=== PATIENT | male | born 1950 | race Caucasian/White ===

== ENCOUNTER 2018-01-14 15:42 | Inpatient (IN) | payer MEDICARE ==
[~2018-01-14] VITALS: Ht 165.1 cm; Wt 96.6 kg
[2018-01-14] MEDS ORDERED: VALS80TA31 PO (16:20)
[2018-01-14] MEDS ORDERED: ACAM333T8 PO (16:20)
[2018-01-14] MEDS ORDERED: BUDE180A INH (16:20)
[2018-01-14] MEDS ORDERED: AZEL6DRO5 EACHEYE (16:20)
[2018-01-14] MEDS ORDERED: TEST75GE TOP (16:20)
[2018-01-14] MEDS ORDERED: AMLO10TA6 PO (16:20)
[2018-01-14] MEDS ORDERED: OMEP20CA10 PO (16:20)
[2018-01-14] MEDS ORDERED: TAMS0.4C34 PO (16:20)
[2018-01-14] MEDS ORDERED: CYCL5TAB PO (16:20)
[2018-01-14] MEDS ORDERED: FURO40TA5 PO (16:20)
[2018-01-14] MEDS ORDERED: GABA-534 PO (16:20)
[2018-01-14] MEDS ORDERED: TRAZ-213 PO (16:20)
[2018-01-14] MEDS ORDERED: ALBU18HF2 IH (16:20)
[2018-01-14] MEDS ORDERED: TADA5TAB2 PO (16:20)
[2018-01-14] MEDS ORDERED: LORA1TAB PO (16:20)
[2018-01-14] MEDS ORDERED: HYDR-3026 PO (16:20)
[2018-01-14] MEDS ORDERED: ACYC400T PO (16:20)
[2018-01-14] MEDS ORDERED: MAGNESIUM HYDROXIDE 30 ML UDC PO PRN (16:30)
[2018-01-14] MEDS ORDERED: MAG HYDROX/AL HYDROX/SIMETH 30 ML UDC PO PRN (16:30)
[2018-01-14] MEDS ORDERED: ACETAMINOPHEN 325 MG TABLET PO PRN (16:30)
[2018-01-14 18:04] VITALS: BP 148/82
--- NOTE | 2018-01-14 18:22 | NUR ---
Admitted a 67 years old male on 5150 for DTS. Per hold pt. present's suicidal with plan to walk into traffic to kill himself. Pt. came from [facility] and arrived in the unit via ambulance and transported via a gurney. Upon face to face assessment, pt. denies suicidal and homicidal and claimed he is depressed. V/S taken, skin assessment done and pictures taken, contraband done and refused to sign the admission papers. Dr. Lam notified about the admission and seen pt. and Dr. Suggs made aware and came to the unit. Will continue to monitor for safety.
[2018-01-14] MEDS ORDERED: CIALIS PO SCH (18:30)
[2018-01-14] MEDS ORDERED: ALBUTEROL FS 2.5 MG/0.5 ML VIAL.NEB NEB PRN (19:30)
--- NOTE | 2018-01-14 19:30 | NUR ---
GPS RN NOTE, RECEIVED PATIENT AWAKE AND IN BED, NO S/S OR COMPLAINTS OF PAIN AT THIS TIME. PATIENT DISPLAYING NO S/S OF APPARENT DISTRESS AT THIS TIME. PATIENT BREATHING IS UNLABORED WITH EQUAL RISE AND FALL OF THE CHEST. PATIENT ALERT AND ORIENTED X 3 WITH A SPO2 95%. PATIENT IS MED COMPLIANT, DISORGANIZED, DEPRESSED, ISOLATIVE, COOPERATIVE, NEEDS REORIENTATION. PATIENT DENIES SUICIDE IDEATIONS AND HOMICIDAL IDEATIONS AT THIS TIME. PATIENT ASSISTED WITH TURNING AND REPOSITIONING Q2HR AND PRN FOR COMFORT AND CIRCULATION. PATIENT HAS NO NEEDS AT THIS TIME. PATIENT EDUCATED ON THE USE OF THE CALL MANZO. PATIENT BED SIDE RAILS UP X2 FOR SAFETY, BED IS LOCKED AND LOW WILL CONTINUE TO MONITOR AND MAINTAIN AND MAINTAIN SAFETY.
[2018-01-14] MEDS: ESCITALOPRAM OXALATE (10 MG) 10 MG TABLET PO SCH (19:56)
[2018-01-14 20:31] VITALS: BP 148/82
[2018-01-14] MEDS: BENZTROPINE MESYLATE (1 MG) 1 MG TABLET PO SCH (21:35)
[2018-01-14] MEDS: risperiDONE 0.25 MG TABLET PO SCH (21:35)
[2018-01-15] MEDS: TEMAZEPAM 7.5 MG CAPSULE PO PRN ×2 (00:23→21:25)
--- NOTE | 2018-01-15 00:23 | NUR ---
GPS RN NOTE, PATIENT HAS A COMPLAINT OF NOT BEING ABLE TO SLEEP AND IS REQUESTING RESTORIL AT THIS TIME. PATIENT VITAL SIGNS ARE STABLE. GAVE RESTORIL 7.5 MG PO HS ORDERED. WILL REASSESS FOR INSOMNIA AND I WILL CONTINUE TO MONITOR THIS PATIENT.
[2018-01-15 07:28] LABS: ALBUMIN 3.3 g/dL (3.4-5.0); BILIRUBIN,TOTAL 0.5 mg/dL (0.2-1.0); CALCIUM, SERUM 8.8 mg/dL (8.5-10.1); POTASSIUM 3.9 mmol/L (3.5-5.1); TOTAL PROTEIN, SERUM 7.2 g/dL (6.4-8.2)
[2018-01-15 08:00] VITALS: BP 143/78
[2018-01-15] MEDS: TAMSULOSIN 0.4 MG CAP.SR.24H PO SCH ×2 (08:41→17:08)
[2018-01-15] MEDS: PANTOPRAZOLE 40 MG TABLET.DR PO SCH (08:41)
[2018-01-15] MEDS: AMLODIPINE BESYLATE 10 MG TABLET PO SCH (08:42)
[2018-01-15] MEDS: VALSARTAN 80 MG TABLET PO SCH (08:42)
[2018-01-15] MEDS: FUROSEMIDE 40 MG TABLET PO SCH (08:43)
[2018-01-15] MEDS: ESCITALOPRAM OXALATE (10 MG) 10 MG TABLET PO SCH (08:43)
[2018-01-15] MEDS: GABAPENTIN 300 MG CAPSULE PO SCH ×3 (08:43→17:08)
[2018-01-15] MEDS: busPIRone 5 MG TABLET PO SCH ×3 (08:43→17:08)
[2018-01-15] MEDS ORDERED: ACAMPROSATE CALCIUM PO SCH (09:00)
[2018-01-15] MEDS ORDERED: PULMICORT FLEXHALER INH SCH (09:00)
[2018-01-15] MEDS ORDERED: AZELASTINE EYE DROPS EACHEYE SCH (09:00)
--- NOTE | 2018-01-15 09:16 | NUR ---
WOUND CARE CONSULT: PT PRESENTS WITH LEFT ARM RAISED RED AREA AND LEFT LOWER LEG ABRASION, PRESENT ON ADMISSION. DEFER TO MD FOR LEFT ARM. RECOMMENDATIONS MADE FOR WOUND CARE OF LEFT LEG ABRASION. DISCUSSED WITH NURSING STAFF. PT IS AMBULATORY AND CONTINENT. WILL SEE PRN. IN AGREEMENT WITH PLAN OF CARE. CURRENT JOSEFINA SCORE IS 22. Addendum: 01/15/18 at 0918 by KALEIGH EGAN WNDNU Amended: Links added.
--- NOTE | 2018-01-15 10:45 | NUR ---
DEA contacted Pia Quigley [phone] Bottom Brusher for Homeless Services at [facility] Department of Behavioral Wellness to discuss placement for pt. DEA unable to reach and left voicemail for callback.
[2018-01-15] MEDS: BUDESONIDE RESPULE INH 0.25 MG/2 ML AMPUL.NEB NEB SCH ×2 (10:50→20:23)
[2018-01-15] MEDS: ACYCLOVIR 200 MG CAPSULE PO SCH ×2 (10:58→17:08)
--- NOTE | 2018-01-15 11:27 | NUR ---
INITIAL DISCHARGE PLAN: Pt wants to de discharged to [facility] for Substance Abuse treatment. Address: [address] [place] [address] . Pt is collaborating with Pia Quigley [phone] Blast Furnace Checker for Homeless Services at [facility] Department of Behavioral Wellness who is assisting pt with placement. DEA has contacted Pia to help form a safe and proper discharge for pt in collaboration with .
[2018-01-15] MEDS: CLOTRIMAZOLE/BETAMETASONE DIPROPIONATE 15 GM TUBE TP SCH ×2 (12:03→17:02)
[2018-01-15] MEDS: BACITRACIN/POLYMYXIN B 15 GM TUBE TP SCH (12:03)
[2018-01-15 15:56] VITALS: BP 135/68
--- NOTE | 2018-01-15 19:30 | NUR ---
GPS NOTE R/T PAGED CONCERNING THE PT'S NEB TX.
[2018-01-15 20:01] VITALS: BP 125/72
[2018-01-15] MEDS: BENZTROPINE MESYLATE (1 MG) 1 MG TABLET PO SCH (21:05)
[2018-01-15] MEDS: risperiDONE 0.25 MG TABLET PO SCH (21:05)
--- NOTE | 2018-01-15 21:25 | NUR ---
GPS NOTE. C/O " IS THERE ANYTHING YOU COULD GIVE ME TO HELP ME FALL ASLEEP?" TEMAZEPAM 7.5 MG PO GIVEN ORDERED. WILL CONTINUE TO MONITOR FOR SAFETY.
[2018-01-16] MEDS: LORAZEPAM 0.5 MG TABLET PO PRN (03:35)
--- NOTE | 2018-01-16 03:35 | NUR ---
GPS NOTE C/O " CAN YOU PLEASE GIVE ME SOMETHING TO HELP ME WITH MY ANXIETY?" ATIVAN 0.5 GIVEN PO ORDER. WILL CONTINUE TO MONITOR FOR SAFETY.
[2018-01-16] MEDS: BUDESONIDE RESPULE INH 0.25 MG/2 ML AMPUL.NEB NEB SCH ×2 (07:34→20:21)
[2018-01-16 08:00] VITALS: BP 122/69
[2018-01-16] MEDS: PANTOPRAZOLE 40 MG TABLET.DR PO SCH (09:51)
[2018-01-16] MEDS: TAMSULOSIN 0.4 MG CAP.SR.24H PO SCH ×2 (09:51→17:02)
[2018-01-16] MEDS: AMLODIPINE BESYLATE 10 MG TABLET PO SCH (09:52)
[2018-01-16] MEDS: ACYCLOVIR 200 MG CAPSULE PO SCH ×2 (09:52→17:02)
[2018-01-16] MEDS: CYCLOBENZAPRINE 10 MG TABLET PO PRN (09:52)
[2018-01-16] MEDS: GABAPENTIN 300 MG CAPSULE PO SCH ×3 (09:53→17:01)
[2018-01-16] MEDS: FUROSEMIDE 40 MG TABLET PO SCH (09:53)
[2018-01-16] MEDS: busPIRone 5 MG TABLET PO SCH ×3 (09:53→17:02)
[2018-01-16] MEDS: BACITRACIN/POLYMYXIN B 15 GM TUBE TP SCH (09:53)
[2018-01-16] MEDS: CLOTRIMAZOLE/BETAMETASONE DIPROPIONATE 15 GM TUBE TP SCH ×2 (09:53→17:04)
[2018-01-16] MEDS: ESCITALOPRAM OXALATE (10 MG) 10 MG TABLET PO SCH (10:54)
--- NOTE | 2018-01-16 11:30 | NUR ---
MRSA SMEAR OF RT. NARE TO LAB PER PROTOCOL.
[2018-01-16] MEDS: VALSARTAN 80 MG TABLET PO SCH (11:55)
--- NOTE | 2018-01-16 11:55 | NUR ---
ALINA HELD BP 113/67.INFO GIVEN TO PTDariel
[2018-01-16 16:00] VITALS: BP 120/76
[2018-01-16 20:00] VITALS: BP 125/72
[2018-01-16] MEDS: BENZTROPINE MESYLATE (1 MG) 1 MG TABLET PO SCH (21:28)
[2018-01-16] MEDS: risperiDONE 0.25 MG TABLET PO SCH (21:29)
[2018-01-16] MEDS: TEMAZEPAM 7.5 MG CAPSULE PO PRN (21:29)
--- NOTE | 2018-01-17 00:44 | NUR ---
Pt has been withdrawn with flat affect but pleasant on approach & compliant with meds.
[2018-01-17] MEDS: LORAZEPAM 0.5 MG TABLET PO PRN ×2 (02:28→15:15)
[2018-01-17 08:00] VITALS: BP 131/69
[2018-01-17] MEDS: BUDESONIDE RESPULE INH 0.25 MG/2 ML AMPUL.NEB NEB SCH ×2 (08:03→19:16)
[2018-01-17] MEDS: TAMSULOSIN 0.4 MG CAP.SR.24H PO SCH ×2 (08:42→16:05)
[2018-01-17] MEDS: busPIRone 5 MG TABLET PO SCH ×3 (08:42→16:05)
[2018-01-17] MEDS: ACYCLOVIR 200 MG CAPSULE PO SCH ×2 (08:42→16:05)
[2018-01-17] MEDS: AMLODIPINE BESYLATE 10 MG TABLET PO SCH (08:43)
[2018-01-17] MEDS: VALSARTAN 80 MG TABLET PO SCH (08:43)
[2018-01-17] MEDS: PANTOPRAZOLE 40 MG TABLET.DR PO SCH (08:43)
[2018-01-17] MEDS: ESCITALOPRAM OXALATE (10 MG) 10 MG TABLET PO SCH (08:43)
[2018-01-17] MEDS: FUROSEMIDE 40 MG TABLET PO SCH (08:43)
[2018-01-17] MEDS: GABAPENTIN 300 MG CAPSULE PO SCH ×3 (08:44→16:05)
[2018-01-17] MEDS: CLOTRIMAZOLE/BETAMETASONE DIPROPIONATE 15 GM TUBE TP SCH ×2 (09:01→16:08)
[2018-01-17] MEDS: BACITRACIN/POLYMYXIN B 15 GM TUBE TP SCH (09:01)
[2018-01-17 16:08] VITALS: BP 111/68
[2018-01-17 19:58] VITALS: BP 128/65
[2018-01-17] MEDS: risperiDONE 0.25 MG TABLET PO SCH (21:00)
[2018-01-17] MEDS: BENZTROPINE MESYLATE (1 MG) 1 MG TABLET PO SCH (21:00)
[2018-01-17] MEDS: TEMAZEPAM 7.5 MG CAPSULE PO PRN (21:41)
[2018-01-18] MEDS: LORAZEPAM 0.5 MG TABLET PO PRN ×3 (01:43→18:54)
--- NOTE | 2018-01-18 01:43 | NUR ---
GPS-RN PATIENT IS ANXIOUS AND RESTLESS AND REQUESTED FOR ATIVAN. ADMINISTERED ATIVAN 0.5MG PO ORDERED. WILL CONTINUE TO MONITOR.
[2018-01-18 08:00] VITALS: BP 128/72
[2018-01-18] MEDS: BUDESONIDE RESPULE INH 0.25 MG/2 ML AMPUL.NEB NEB SCH ×3 (08:37→19:31)
[2018-01-18] MEDS: PANTOPRAZOLE 40 MG TABLET.DR PO SCH (09:12)
[2018-01-18] MEDS: AMLODIPINE BESYLATE 10 MG TABLET PO SCH (09:12)
[2018-01-18] MEDS: ESCITALOPRAM OXALATE (10 MG) 10 MG TABLET PO SCH (09:12)
[2018-01-18] MEDS: GABAPENTIN 300 MG CAPSULE PO SCH ×3 (09:12→17:34)
[2018-01-18] MEDS: ACYCLOVIR 200 MG CAPSULE PO SCH ×2 (09:12→17:34)
[2018-01-18] MEDS: busPIRone 5 MG TABLET PO SCH ×3 (09:12→17:34)
[2018-01-18] MEDS: TAMSULOSIN 0.4 MG CAP.SR.24H PO SCH ×2 (09:13→17:34)
[2018-01-18] MEDS: VALSARTAN 80 MG TABLET PO SCH (09:13)
[2018-01-18] MEDS: FUROSEMIDE 40 MG TABLET PO SCH (09:35)
[2018-01-18] MEDS: CLOTRIMAZOLE/BETAMETASONE DIPROPIONATE 15 GM TUBE TP SCH ×2 (09:46→17:35)
[2018-01-18] MEDS: BACITRACIN/POLYMYXIN B 15 GM TUBE TP SCH (09:46)
--- NOTE | 2018-01-18 11:12 | NUR ---
RN NOTES ADMINISTERED ATIVAN 0.5 MG PO PRN FOR ANXIETY PRESCRIBED, PER PATIENT REQUEST, V/S TAKEN BP -128/72, P-78, CONTINUED MONITORING.
[2018-01-18 16:00] VITALS: BP 108/66
--- NOTE | 2018-01-18 18:54 | NUR ---
RN NOTES ADMINISTERED ATIVAN 0.5 MG PO PRN FOR ANXIETY, PER PATIENT REQUEST, V/S TAKEN BP- 120/70, P-102, CONTINUED MONITORING.
[2018-01-18 19:36] VITALS: BP 106/62
[2018-01-18] MEDS: risperiDONE 0.25 MG TABLET PO SCH (21:28)
[2018-01-18] MEDS: BENZTROPINE MESYLATE (1 MG) 1 MG TABLET PO SCH (21:29)
[2018-01-18] MEDS: TEMAZEPAM 7.5 MG CAPSULE PO PRN (21:30)
[2018-01-19] MEDS: LORAZEPAM 0.5 MG TABLET PO PRN ×2 (04:18→12:18)
[2018-01-19] MEDS: BUDESONIDE RESPULE INH 0.25 MG/2 ML AMPUL.NEB NEB SCH ×2 (07:09→19:30)
[2018-01-19 08:00] VITALS: BP 126/72
[2018-01-19] MEDS: AMLODIPINE BESYLATE 10 MG TABLET PO SCH (08:20)
[2018-01-19] MEDS: FUROSEMIDE 40 MG TABLET PO SCH (08:20)
[2018-01-19] MEDS: ESCITALOPRAM OXALATE (10 MG) 10 MG TABLET PO SCH (08:21)
[2018-01-19] MEDS: VALSARTAN 80 MG TABLET PO SCH (08:21)
[2018-01-19] MEDS: PANTOPRAZOLE 40 MG TABLET.DR PO SCH (08:21)
[2018-01-19] MEDS: TAMSULOSIN 0.4 MG CAP.SR.24H PO SCH ×2 (08:21→16:13)
[2018-01-19] MEDS: ACYCLOVIR 200 MG CAPSULE PO SCH ×2 (08:21→16:13)
[2018-01-19] MEDS: busPIRone 5 MG TABLET PO SCH ×3 (08:21→16:13)
[2018-01-19] MEDS: CYCLOBENZAPRINE 10 MG TABLET PO PRN (08:21)
[2018-01-19] MEDS: GABAPENTIN 300 MG CAPSULE PO SCH ×3 (08:22→16:13)
[2018-01-19] MEDS: BACITRACIN/POLYMYXIN B 15 GM TUBE TP SCH (08:53)
[2018-01-19] MEDS: CLOTRIMAZOLE/BETAMETASONE DIPROPIONATE 15 GM TUBE TP SCH ×2 (08:54→16:17)
--- NOTE | 2018-01-19 10:04 | NUR ---
SW attempted to contact Pia Quigley [phone] Mechanical Project Manager for Homeless Services at [facility] Department of Behavioral Wellness for update on treatment center placement. DEA unable to reach left voicemail.
--- NOTE | 2018-01-19 12:19 | NUR ---
GPS/RN PATIENT REPORT REPORTS BEING ANXIOUS, ADMINISTERED ATIVAN 0.5 MG PER PATIENT REQUEST, WILL CONTINUE TO MONITOR.
[2018-01-19 16:00] VITALS: BP 112/68
[2018-01-19 20:15] VITALS: BP 131/66
[2018-01-19] MEDS: BENZTROPINE MESYLATE (1 MG) 1 MG TABLET PO SCH (21:17)
[2018-01-19] MEDS: risperiDONE 0.25 MG TABLET PO SCH (21:17)
[2018-01-19] MEDS: TEMAZEPAM 7.5 MG CAPSULE PO PRN (23:45)
[2018-01-20] MEDS: LORAZEPAM 0.5 MG TABLET PO PRN ×2 (03:42→12:34)
[2018-01-20] MEDS: PANTOPRAZOLE 40 MG TABLET.DR PO SCH (07:30)
[2018-01-20] MEDS: BUDESONIDE RESPULE INH 0.25 MG/2 ML AMPUL.NEB NEB SCH ×2 (07:33→20:03)
[2018-01-20 08:00] VITALS: BP 126/58
[2018-01-20] MEDS: CLOTRIMAZOLE/BETAMETASONE DIPROPIONATE 15 GM TUBE TP SCH ×2 (09:00→17:49)
[2018-01-20] MEDS: busPIRone 5 MG TABLET PO SCH ×3 (09:00→17:48)
[2018-01-20] MEDS ORDERED: ESCITALOPRAM OXALATE (10 MG) 10 MG TABLET PO SCH (09:00)
[2018-01-20] MEDS: AMLODIPINE BESYLATE 10 MG TABLET PO SCH (09:00)
[2018-01-20] MEDS: VALSARTAN 80 MG TABLET PO SCH (09:00)
[2018-01-20] MEDS: TAMSULOSIN 0.4 MG CAP.SR.24H PO SCH ×2 (09:00→17:48)
[2018-01-20] MEDS: FUROSEMIDE 40 MG TABLET PO SCH (09:00)
[2018-01-20] MEDS: GABAPENTIN 300 MG CAPSULE PO SCH ×3 (09:00→17:48)
[2018-01-20] MEDS: ACYCLOVIR 200 MG CAPSULE PO SCH ×2 (09:00→17:48)
[2018-01-20] MEDS: BACITRACIN/POLYMYXIN B 15 GM TUBE TP SCH (10:04)
--- NOTE | 2018-01-20 12:34 | NUR ---
PATIENT C/O ANXIETY MEDICATED WITH ATIVAN 0.5MG X1 .WILL CONTINUE TO MONITOR .
[2018-01-20 16:00] VITALS: BP 116/74
[2018-01-20 20:10] VITALS: BP 127/84
[2018-01-20] MEDS: BENZTROPINE MESYLATE (1 MG) 1 MG TABLET PO SCH (21:15)
[2018-01-20] MEDS: risperiDONE 0.25 MG TABLET PO SCH (21:15)
[2018-01-20] MEDS: TEMAZEPAM 7.5 MG CAPSULE PO PRN (22:46)
[2018-01-21] MEDS: LORAZEPAM 0.5 MG TABLET PO PRN (02:08)
[2018-01-21 08:00] VITALS: BP 128/63
[2018-01-21] MEDS: BUDESONIDE RESPULE INH 0.25 MG/2 ML AMPUL.NEB NEB SCH (08:07)
[2018-01-21] MEDS: ACYCLOVIR 200 MG CAPSULE PO SCH (08:29)
[2018-01-21] MEDS: FUROSEMIDE 40 MG TABLET PO SCH (08:29)
[2018-01-21] MEDS: GABAPENTIN 300 MG CAPSULE PO SCH (08:29)
[2018-01-21 08:30] VITALS: BP 128/63
[2018-01-21] MEDS: PANTOPRAZOLE 40 MG TABLET.DR PO SCH (08:30)
[2018-01-21] MEDS: TAMSULOSIN 0.4 MG CAP.SR.24H PO SCH (08:30)
[2018-01-21] MEDS: AMLODIPINE BESYLATE 10 MG TABLET PO SCH (08:30)
[2018-01-21] MEDS: VALSARTAN 80 MG TABLET PO SCH (08:30)
[2018-01-21] MEDS: busPIRone 5 MG TABLET PO SCH (08:30)
[2018-01-21] MEDS: BACITRACIN/POLYMYXIN B 15 GM TUBE TP SCH (08:47)
[2018-01-21] MEDS: CLOTRIMAZOLE/BETAMETASONE DIPROPIONATE 15 GM TUBE TP SCH (08:47)
[2018-01-21] MEDS ORDERED: ESCITALOPRAM OXALATE (10 MG) 10 MG TABLET PO SCH (09:00)
--- NOTE | 2018-01-21 11:15 | NUR ---
GPS/RN-NOTES PATIENT WAS DISCHARGE TO [facility] TODAY. DR. JEFFERSON AND SHIRT SEWER SARINA AWARE AND AGREES OF THE DISCHARGE WITH ORDERS. ALL DISCHARGE MEDICATIONS WAS REVIEWED WITH THE PATIENT WITH UNDERSTANDING., ALSO ADVISE PATIENT TO FOLLOW UP WITH HIS PRIMARY PHYSICIANS. PATIENT DID NOT VERBALIZE SI/HI,DENIES VISUAL/AUDITORY HALLUCINATIONS AT THE TIME OF DISCHARGE. PATIENT LEFT THE UNIT WITH ALL HIS BELONGINGS INCLUDING PRESCRIPTIONS AND DISCHARGE PAPERS. HE LEFT THE UNIT IN STABLE CONDITION ALERT ORIENTED X4 AMBULATORY WITH STEADY GAIT.DAIRY ASSOCIATE BY (BRENDA ) CARPENTRY FOREMAN [facility] TRANSPORTATION. PATIENT WAS ASSISTED BY ONE CHILD CARE CENTRE DIRECTOR STAFF IN THE LOBBY FOR SAFETY.PATIENT SIGNIFICANT OTHERS LUIS NUNO [phone] WAS MADE AWARE BY THE TEACHER OF THE DEAF/HARD OF HEARING OF THE PATIENT DISCHARGE.
--- NOTE | 2018-01-21 12:42 | NUR ---
DISCHARGE NOTE: Pt was discharged at 10:45am to [facility] [address] [facility] and being transported by [facility] [phone]. Pt requested family not to be contacted. Pt appeared in a pleasant mood with congruent affect. Pt denied suicidal/homicidal ideations and denied visual/auditory hallucinations. Pt will be receiving mental health and substance abuse treatment at [facility] Pt was directed to report to [facility] for an intake interview before 4:00pm. Pt was encouraged to schedule a follow-up appointment with Respiratory Scientist: Dr. Gilbert Mejía [address] [facility] [address] P: [phone] and schedule an appointment with Psychiatrist: [address] [place] [address] P:[phone] F: [phone]. The multidisciplinary exitcare form was done, printed, signed, and given to the patient.
--- NOTE | 2018-02-12 11:12 | NUR ---
15 DAY SUBSTANCE ABUSE FOLLOW-UP: Pt excluded due to discharge to inpatient rehab services at [address] [phone].
== END 2018-01-21 11:10 | disposition home or self-care (01) | DRG 885 ==
LOC: GPS 15:42
PROVIDERS: ADMIT Psychiatry & Neurology Psychosomatic Medicine; ATTEND Internal Medicine
DX: F33.2 Major depressive disorder, recurrent severe without psychotic features (principal); R45.851 Suicidal ideations; F10.11 Alcohol abuse, in remission; F41.9 Anxiety disorder, unspecified; N40.0 Benign prostatic hyperplasia without lower urinary tract symptoms; E78.5 Hyperlipidemia, unspecified; I10 Essential (primary) hypertension; G62.9 Polyneuropathy, unspecified; Z87.820 Personal history of traumatic brain injury
CPT/HCPCS: 36415; 80053-TC; 80061-TC; 87081-TC; 94799-TC

== ENCOUNTER 2018-11-19 11:18 | Inpatient (IN) | payer MEDICARE, OTHER ==
[~2018-11-19] VITALS: Ht 165.1 cm; Wt 86.2 kg
[~2018-11-19 11:18] MED LIST: ACAM333T8 PO; ACYC400T PO; ALBU18HF2 IH; AMLO10TA7 PO; AZEL6DRO5 EACHEYE; BUDE180A INH; CYCL5TAB PO; FURO40TA5 PO; HYDR-3026 PO; OMEP20CA10 PO; TADA5TAB2 PO; TAMS0.4C34 PO; TEST75GE TOP; VALS80TA31 PO
--- NOTE | 2018-11-19 11:38 | NUR ---
POPEYE FROM [facility], C/O DEPRESSION, SUICIDAL IDEATION. STATES HE TRIED TO OVERDOSE ON ALCOHOL AND MEDS, HAS MADE PREVIOUS ATTEMPTS IN THE PAST. DENIES HI. C/O BACK PAIN AND SOME SOB. PLACED ON MONITOR AND IN GOWN. AWAITING MD CARRILLO.
--- NOTE | 2018-11-19 11:39 | NUR ---
SUICIDE PRECAUTIONS IMPLEMENTED. BELONGINGS PLACED AT NURSE'S STATION.
--- NOTE | 2018-11-19 11:45 | NUR ---
DR LEBRON AT BEDSIDE FOR EVAL.
[2018-11-19 11:53] LABS: BASOPHILS # (AUTO) 0.1 /CMM (0.0-0.2); BASOPHILS % (AUTO) 0.9 % (0.0-2.0); EOSINOPHILS % (AUTO) 1.2 % (0.0-6.0); HEMATOCRIT 44 % (39-51); HEMOGLOBIN 15.1 g/dL (13.5-17.5); LYMPHOCYTES # (AUTO) 1.1 /CMM (0.8-4.8); LYMPHOCYTES % (AUTO) 17.3 % (20.0-44.0); MEAN CORPUSCULAR HGB CONC 34 g/dl (31.0-36.0); MEAN CORPUSCULAR VOLUME 91 fL (80-96); MONOCYTES # (AUTO) 0.3 /CMM (0.1-1.30); MONOCYTES % (AUTO) 5.4 % (2.0-12.0); NEUTROPHILS # (AUTO) 4.8 /CMM (1.8-8.9); NEUTROPHILS % (AUTO) 75.2 % (43.0-81.0); PLATELET COUNT (AUTO) 244 /CMM (150-450); RED BLOOD CELL COUNT(AUTO) 4.86 MIL/uL (4.5-6.0); WHITE BLOOD COUNT (AUTO) 6.3 K/uL (4.3-11.0)
--- NOTE | 2018-11-19 11:55 | NUR ---
URINE SENT TO STAT LAB
[2018-11-19] MEDS ORDERED: ACETAMINOPHEN ES 500 MG TABLET PO ONE (12:00)
[2018-11-19 12:02] LABS: CALCIUM, SERUM 8.8 mg/dL (8.5-10.1); CARBON DIOXIDE 32 mmol/L (21-32); CHLORIDE 98 mmol/L (98-107); CREATININE 1.2 mg/dL (0.6-1.3); GLUCOSE 111 mg/dL (74-106); POTASSIUM 4.3 mmol/L (3.5-5.1); SODIUM SERUM 136 mmol/L (136-145); UREA NITROGEN, BLOOD 24 mg/dL (7-18)
[2018-11-19] MEDS ORDERED: ACETAMINOPHEN ES 500 MG TABLET ONE (12:03)
--- NOTE | 2018-11-19 12:06 | NUR ---
MEDICATION GIVEN FOR BACK PAIN 03/19. STATES HE DOES NOT REMEMBER FALLING OR HURTING HIMSELF. DOES NOT REMEMBER MUCH AFTER OVERDOSING ON PILLS.
[2018-11-19 12:10] LABS: ACETAMINOPHEN 0 ug/ml (10-30); ALANINE AMINOTRANSFERASE 27 U/L (12-78); ALBUMIN 3.6 g/dL (3.4-5.0); ALCOHOL, BLOOD < 3 mg/dL (0-0); ALKALINE PHOSPHATASE 110 U/L (46-116); ASPARTATE AMINOTRANSFERASE 16 U/L (15-37); BILIRUBIN,DIRECT 0.2 mg/dL (0.0-0.2); BILIRUBIN,TOTAL 0.9 mg/dL (0.2-1.0); SALICYLATE 0.5 mg/dL (2.8-20.0); TOTAL PROTEIN, SERUM 7.7 g/dL (6.4-8.2)
[2018-11-19 12:13] LABS: APPEARANCE,URINE Slightly Cloudy (CLEAR); BILIRUBIN,URINE Negative (NEGATIVE); BLOOD, URINE Negative Ery/uL (NEGATIVE); COLOR,URINE Yellow (YELLOW); KETONES,URINE Negative (NEGATIVE); LEUKOCYTE ESTERASE ,URINE Negative (NEGATIVE); NITRITE, URINE Negative (NEGATIVE); PROTEIN,URINE Negative (NEGATIVE); UGLUCOSE Negative (NEGATIVE); UROBILINOGEN,URINE 0.2 EU/dL (0.2)
--- NOTE | 2018-11-19 12:22 | NUR ---
ROOM GIVEN GPS 214.
[2018-11-19] MEDS ORDERED: DULO60CA45 PO (12:30)
[2018-11-19] MEDS ORDERED: CLON1TAB12 PO (12:30)
[2018-11-19] MEDS ORDERED: PRAZ2CAP2 PO (12:30)
[2018-11-19] MEDS ORDERED: DIPH25CA6 PO (12:30)
--- NOTE | 2018-11-19 12:50 | NUR ---
ART PAGED AND STATES WILL COM AFTER ENCINO MEETING
--- NOTE | 2018-11-19 13:02 | NUR ---
CALLED DIETARY FOR MEAL TRAY
--- NOTE | 2018-11-19 13:09 | NUR ---
PT GIVEN FOOD TRAY
--- NOTE | 2018-11-19 14:15 | NUR ---
PSYCHOTHERAPIST SOCIAL WORKER ART AT BEDSIDE FOR EVAL.
--- NOTE | 2018-11-19 14:57 | NUR ---
REPORT GIVEN TO MARC JACKSON FOR GPS 214
--- NOTE | 2018-11-19 15:45 | NUR ---
PT TAKEN TO FLOOR VIA ARVIND
[2018-11-19] MEDS ORDERED: MAG HYDROX/AL HYDROX/SIMETH 30 ML UDC PO PRN (16:00)
[2018-11-19] MEDS ORDERED: ACETAMINOPHEN 325 MG TABLET PO PRN (16:00)
--- NOTE | 2018-11-19 18:07 | NUR ---
GPS/RN-NOTES ADMITTED 68 YEARS OLD MALE PATIENT FROM [facility]. PATIENT ON 5150 FOR DTS . UPON FACE TO FACE INTERVIEW, PATIENT ALERT ORIENTED X3 AMBULATORY WITH STEADY GAIT. PATIENT IS CALM AND COOPERATIVE DURING ADMISSION PROCESS. PATIENT DID NOT VERBALIZE SI/HI,DENIES VISUAL/AUDITORY HALLUCINATIONS AT THIS TIME.STATED" I DON'T HAVE ANY THOUGHTS OF KILLING MY SELF AT THIS TIME". FULL BODY ASSESSMENT DONE. MRSA DONE AND SEND TO LAB.PATIENT'S RIGHT WAS REVIEWED WITH PATIENT AND HANDBOOK WAS GIVEN TO THE PATIENT. PATIENT WAS ORIENTED IN THE UNIT AND UNIT POLICIES. CALL MANZO WITHIN REACH. DR. JEFFERSON ( PSYCHIATRIST) MADE AWARE OF PATIENT ADMISSION WITH ORDERS. AL MARIEE MADE AWARE OF THE ADMISSION. CALLED PATIENT'S BROTHER KEYA GRAHAM AT [phone] WAS UNABLE TO LEAVE MGS VIA VOICE MAIL DUE TO VOICE MAIL WAS FULL. WILL ENDORSE TO INCOMING NURSE FOR CONTINUITY OF CARE .
[2018-11-19] MEDS ORDERED: ALBUTEROL FS 2.5 MG/3 ML VIAL.NEB NEB PRN (19:00)
[2018-11-19 20:00] VITALS: BP 135/77
[2018-11-19] MEDS: LORAZEPAM 0.5 MG TABLET PO PRN (21:08)
[2018-11-19] MEDS: TEMAZEPAM 7.5 MG CAPSULE PO PRN (21:11)
[2018-11-20 07:39] LABS: ALBUMIN 3.2 g/dL (3.4-5.0); BILIRUBIN,TOTAL 0.9 mg/dL (0.2-1.0); CALCIUM, SERUM 8.5 mg/dL (8.5-10.1); CREATININE 1.1 mg/dL (0.6-1.3); TOTAL PROTEIN, SERUM 6.8 g/dL (6.4-8.2)
[2018-11-20 07:48] LABS: CHOLESTEROL 188 mg/dL (<200); HDL CHOLESTEROL 88 mg/dL (40-60); LDL 93 mg/dL (0-99); TRIGLYCERIDES 54 mg/dL (30-150)
[2018-11-20 08:00] VITALS: BP 146/87
[2018-11-20] MEDS: AMLODIPINE BESYLATE 10 MG TABLET PO SCH (08:16)
[2018-11-20] MEDS: TAMSULOSIN 0.4 MG CAP.SR.24H PO SCH (08:16)
[2018-11-20] MEDS: FUROSEMIDE 40 MG TABLET PO SCH (08:16)
[2018-11-20] MEDS: LORAZEPAM 0.5 MG TABLET PO PRN ×2 (14:30→21:40)
--- NOTE | 2018-11-20 14:32 | NUR ---
GPS RN NOTE: PT REQUESTING ATIVAN FOR ANXIETY, ATIVAN 0.5 MG PO PRN GIVEN PER ORDER WILL CONTINUE MONITORING.
[2018-11-20 16:00] VITALS: BP 150/92
[2018-11-20 20:00] VITALS: BP 126/83
[2018-11-20] MEDS: ARIPIPRAZOLE 5 MG TABLET PO SCH (21:40)
[2018-11-20] MEDS: TEMAZEPAM 7.5 MG CAPSULE PO PRN (21:40)
[2018-11-21] MEDS: LORAZEPAM 0.5 MG TABLET PO PRN ×3 (03:47→21:13)
[2018-11-21 08:00] VITALS: BP 130/91
[2018-11-21] MEDS: FUROSEMIDE 40 MG TABLET PO SCH (09:02)
[2018-11-21] MEDS: TAMSULOSIN 0.4 MG CAP.SR.24H PO SCH (09:05)
[2018-11-21] MEDS: DULOXETINE HCL 30 MG CAPSULE.DR PO SCH (09:05)
[2018-11-21] MEDS: AMLODIPINE BESYLATE 10 MG TABLET PO SCH (09:13)
--- NOTE | 2018-11-21 12:55 | NUR ---
GPS RN INITIAL NOTES Received report at bedside from Registry Nurse. Will continue to monitor and assess patient for safety and behavior.
[2018-11-21 16:00] VITALS: BP 113/76
--- NOTE | 2018-11-21 16:15 | NUR ---
GPS RN NOTES Remeron consent: awaiting for physician's signature. Charge nurse made aware and will follow up with physician.
--- NOTE | 2018-11-21 17:13 | NUR ---
GPS RN NOTES RT made aware of 1700 breathing treatment.
[2018-11-21 20:00] VITALS: BP 142/73
[2018-11-21] MEDS: ARIPIPRAZOLE 5 MG TABLET PO SCH (21:13)
[2018-11-22] MEDS: LORAZEPAM 0.5 MG TABLET PO PRN ×3 (04:28→21:15)
[2018-11-22 08:00] VITALS: BP 131/74
[2018-11-22] MEDS: FUROSEMIDE 40 MG TABLET PO SCH (09:20)
[2018-11-22] MEDS: AMLODIPINE BESYLATE 10 MG TABLET PO SCH (09:21)
[2018-11-22] MEDS: DULOXETINE HCL 30 MG CAPSULE.DR PO SCH (09:24)
[2018-11-22] MEDS: TAMSULOSIN 0.4 MG CAP.SR.24H PO SCH (09:24)
--- NOTE | 2018-11-22 10:23 | NUR ---
WOUND CARE CONSULT: PT PRESENTS WITH LEFT HAND SKIN TEAR, PRESENT ON ADMISSION. PT IS AMBULATORY AND CONTINENT. WOUND CARE RECOMMENDATIONS DISCUSSED WITH NURSING STAFF. WILL SEE PRN. JONES IN AGREEMENT WITH PLAN OF CARE. Addendum: 11/22/18 at 1024 by KALEIGH EGAN WNDNU Amended: Links added.
--- NOTE | 2018-11-22 12:15 | NUR ---
DEA contacted pts brother Timi [phone] to inform him pt was currently hospitalized and need of fpc. Pts brother stated that is unable to assist him with fpc and currently buckley snot have any resources for pt.
--- NOTE | 2018-11-22 12:34 | NUR ---
INITIAL DISCHARGE PLAN: Patient wishes to be discharged back to [facility] and stated he will go to a homeless halfway and will figure things out once he receives his SSI check. DEA will contact Felicia pillowcase cutter/implant coordinator at [facility] [phone] to assist with housing. DEA will help form a safe and discharge in collaboration with .
--- NOTE | 2018-11-22 12:35 | NUR ---
DEA contacted Felicia, case checker/network coordinator at [facility] [phone] ands left a stating pt needs long term once discharged and requested a call back.
--- NOTE | 2018-11-22 13:58 | NUR ---
RN NOTE: Patient was complaining feelings of anxiousness/ anxiety. Ativan 0.5mg given. Will continue to monitor patient.
--- NOTE | 2018-11-22 14:52 | NUR ---
SW received a call from Felicia, piano case and bench assembler/marketing information coordinator at [facility] [phone] who stated pt has exhausted his resources in [facility] and stated pt had been manipulating many health career discovery teacher and therefore exhausted all the assistance he could receives. Felicia, also mentioned that pts mental health issues are focused on his fiance and has been refusing to seek treatment. Per Felicia, [facility] no longer has shelters as they have all been closed and therefore, if pt returns he will be on the street. Felicia stated that the only resource she can provide pt is for him to apply to [facility] and get on their waiting list. Felicia also stated that pts legal problems have been addressed by his purchase analyst and buckleybrandan neumannot have to worry about that for the next 2 months.
[2018-11-22 16:00] VITALS: BP 104/65
[2018-11-22 19:54] VITALS: BP 113/63
[2018-11-22] MEDS: MIRTAZAPINE 15 MG TABLET PO SCH ×2 (21:14→21:15)
[2018-11-22] MEDS: TEMAZEPAM 7.5 MG CAPSULE PO PRN (21:14)
[2018-11-23] MEDS: LORAZEPAM 0.5 MG TABLET PO PRN ×2 (06:07→13:51)
[2018-11-23 08:00] VITALS: BP 123/53
[2018-11-23] MEDS: DULOXETINE HCL 30 MG CAPSULE.DR PO SCH (09:27)
[2018-11-23] MEDS: TAMSULOSIN 0.4 MG CAP.SR.24H PO SCH (09:28)
[2018-11-23] MEDS: FUROSEMIDE 40 MG TABLET PO SCH (09:28)
[2018-11-23] MEDS: AMLODIPINE BESYLATE 10 MG TABLET PO SCH (09:30)
[2018-11-23] MEDS: ARIPIPRAZOLE 2 MG TABLET PO SCH (09:42)
--- NOTE | 2018-11-23 12:41 | NUR ---
SUPPORTIVE SERVICES: SW provided pt with an application to [facility] [address] [place] [phone] ([facility]) and also provided him with Senior Marketing Analyst [address] [facility]. Pt stated he would call and inquire on bed availability.
[2018-11-23 16:00] VITALS: BP 119/68
[2018-11-23 20:11] VITALS: BP 130/66
[2018-11-23] MEDS: MIRTAZAPINE 15 MG TABLET PO SCH (21:35)
[2018-11-23] MEDS: TEMAZEPAM 7.5 MG CAPSULE PO PRN (21:41)
--- NOTE | 2018-11-23 22:15 | NUR ---
ms/rn notes Patient medicated with Restoril 1 tab as ordered, for insomnia. Will continue plan of care. All safety precautions rendered.
[2018-11-24] MEDS: LORAZEPAM 0.5 MG TABLET PO PRN ×3 (03:18→20:24)
--- NOTE | 2018-11-24 03:19 | NUR ---
ms/rn notes patient medicated with ativan 1 tab prn as ordered. will continue to monitor
[2018-11-24 08:00] VITALS: BP 118/71
[2018-11-24] MEDS: DULOXETINE HCL 30 MG CAPSULE.DR PO SCH (08:47)
[2018-11-24] MEDS: ARIPIPRAZOLE 2 MG TABLET PO SCH (08:47)
[2018-11-24] MEDS: TAMSULOSIN 0.4 MG CAP.SR.24H PO SCH (08:48)
[2018-11-24] MEDS: AMLODIPINE BESYLATE 10 MG TABLET PO SCH (08:48)
[2018-11-24] MEDS: FUROSEMIDE 40 MG TABLET PO SCH (08:48)
--- NOTE | 2018-11-24 13:31 | NUR ---
GPS/RN-NOTES PATIENT STATED" I HAVE PANIC ATTACK I NEED MY ATIVAN ". ATIVAN 0.5MG P.O GIVEN PRN ORDER. WILL CONT. MONITORING FOR SAFETY AND BEHAVIOR.
[2018-11-24 16:00] VITALS: BP 114/74
--- NOTE | 2018-11-24 19:46 | NUR ---
GPS/RN OPENING NOTES RECEIVED PATIENT AWAKE, ALERT X3, ABLE TO VERBALIZE NEEDS, REPORTED NEED OF ATIVAN AND STOOL SOFTENER INFORMED THAT ATIVAN IS DUE IN AN HOUR AND ABLE TO UNDERSTAND MEDICATION REGIMEN, WILL MONITOR, KEPT COMFORTABLE. RECEIVED ENDORSEMENT FROM AM RN FOR JOVITA.
[2018-11-24 19:59] VITALS: BP 124/79
--- NOTE | 2018-11-24 20:26 | NUR ---
GPS/RN NOTES PATIENT AWAKE, AND ATIVAN REQUEST GIVEN PATIENT REPORTED INABILITY TO RELAX, WILL MONITOR.
--- NOTE | 2018-11-24 20:28 | NUR ---
GPS/RN NOTES PATIENT HAD A PRUNE JUICE TODAY AND PREFER TO HOLD MILK OF MAGNESIA FOR TONIGHT WILL MONITOR FOR BOWEL MOVEMENT.
[2018-11-24 20:31] VITALS: BP 124/79
[2018-11-24] MEDS ORDERED: MIRTAZAPINE 15 MG TABLET PO SCH (22:00)
[2018-11-24] MEDS: TEMAZEPAM 7.5 MG CAPSULE PO PRN (22:13)
[2018-11-24] MEDS ORDERED: ARIPIPRAZOLE 2 MG TABLET PO ONE (22:30)
[2018-11-25 08:00] VITALS: BP 119/69
[2018-11-25] MEDS: AMLODIPINE BESYLATE 10 MG TABLET PO SCH (08:10)
[2018-11-25] MEDS: TAMSULOSIN 0.4 MG CAP.SR.24H PO SCH (08:10)
[2018-11-25] MEDS: FUROSEMIDE 40 MG TABLET PO SCH (08:10)
[2018-11-25] MEDS: DULOXETINE HCL 30 MG CAPSULE.DR PO SCH (08:10)
[2018-11-25] MEDS ORDERED: ARIPIPRAZOLE 2 MG TABLET PO SCH ×2 (09:00→22:00)
[2018-11-25] MEDS: LORAZEPAM 0.5 MG TABLET PO PRN ×2 (12:19→18:51)
[2018-11-25] MEDS: MAGNESIUM HYDROXIDE 30 ML UDC PO PRN (12:20)
--- NOTE | 2018-11-25 12:21 | NUR ---
GPS/RN-NOTES PATIENT STATED" I NEED ATIVAN,I'M ANXIOUS,AND CONSTIPATED ". ATIVAN 0.5MG P.O AND MOM 30ML GIVEN PRN ORDER. WILL CONT. MONITORING FOR SAFETY AND BEHAVIOR.
--- NOTE | 2018-11-25 12:25 | NUR ---
GPS/RN-NOTES PATIENT LAYING IN BED ,READING MAGAZINE,CALM NO ACUTE DISTRESS NOTED.
--- NOTE | 2018-11-25 13:57 | NUR ---
SW contacted [facility] [address] [place] [address] ([facility]) [phone] and spoke with Laurie who confirmed pt has been placed on a waiting list but does not know how quickly a bed will be available.
[2018-11-25 16:00] VITALS: BP 136/80
--- NOTE | 2018-11-25 18:51 | NUR ---
GPS/RN-NOTES PATIENT STATED" CAN I HAVE ATIVAN,I'M ANXIOUS ". ATIVAN 0.5MG P.O PRN ORDER. WILL CONT. MONITORING FOR SAFETY AND BEHAVIOR.ENDORSE TO INCOMING NURSE FOR CONTINUITY OF CARE.
[2018-11-25 20:00] VITALS: BP 115/61
--- NOTE | 2018-11-25 20:35 | NUR ---
in bed reading. smiling when spoken to. message from Bushra was given to him.."please stop calling me" He asked me what her number was, informed him I don't know. he recieved the message and remained calm.
[2018-11-25] MEDS: MIRTAZAPINE 15 MG TABLET PO SCH (22:02)
[2018-11-25] MEDS: TEMAZEPAM 7.5 MG CAPSULE PO PRN (22:02)
[2018-11-26] MEDS: LORAZEPAM 0.5 MG TABLET PO PRN ×2 (03:00→13:55)
--- NOTE | 2018-11-26 05:16 | NUR ---
CLOSING NOTES: TO BED AROUNG 2200 AND SLEPT UNTIL 01:30 AND REQUISTED A ATIVAN D/T THE SITTER FOR THE MAN IN THE 2ND BED IS TALKING LOUDING ON THE PHONE. HE WAS UPSET THAT THE NURSE HAD NO RESPECT FOR PEOPLE THAT ARE TRYING TO SLEEP. i SPOKE TO THE SITTER MALE AND HE PUT HIS PHONE ON SILENCE . ATIVAN WASS EFFECTIVE AND THE PT WENT BACK TO SLEEP. SLEEPING HOURS TO NIGHT ABOUT 8 HOURS.
[2018-11-26 08:00] VITALS: BP 119/72
[2018-11-26] MEDS: AMLODIPINE BESYLATE 10 MG TABLET PO SCH (08:43)
[2018-11-26] MEDS: DULOXETINE HCL 30 MG CAPSULE.DR PO SCH (08:43)
[2018-11-26] MEDS: FUROSEMIDE 40 MG TABLET PO SCH (08:43)
[2018-11-26] MEDS: TAMSULOSIN 0.4 MG CAP.SR.24H PO SCH (08:45)
--- NOTE | 2018-11-26 14:26 | NUR ---
Discharge Planning: Social work spoke with pts , sw will fax SNF referral to [facility] Address: [address] [place] [address] fax: [phone] for possible placement prior to sober living placement due to waiting list.
[2018-11-26 16:16] VITALS: BP 125/76
--- NOTE | 2018-11-26 19:30 | NUR ---
RN INITIAL NOTES: PT IN BED,AWAKE, A/O X3, RESPIRATION EVEN AND UNLABORED, DENIES ANY PAIN OR DISCOMFORT, DENIES ANY SI/HI AT THIS TIME, PT IS AMBULATORY, SELF CARE, CONTINENT,CALM AND COOPERATIVE, DEPRESSED PSYCHE AWARE, MEDICATION COMPLIANT, SAFETY PRECAUTIONS FOR FALL ENGAGED, SIDE RAILS UP X2 FOR SAFETY, WILL CONTINUE TO MONITOR [id number] FOR SAFETY AND ANY CHANGES IN BEHAVIOR
[2018-11-26 20:00] VITALS: BP 129/72
[2018-11-26] MEDS: MIRTAZAPINE 15 MG TABLET PO SCH (21:14)
[2018-11-26] MEDS: TEMAZEPAM 7.5 MG CAPSULE PO PRN (21:14)
[2018-11-26] MEDS: ARIPIPRAZOLE 2 MG TABLET PO SCH (21:14)
--- NOTE | 2018-11-26 21:15 | NUR ---
PRN RESTORIL: POT REQUESTED FOR RESTORIL TO HELP HIM SLEEP, PRN RESTORIL 7.5 MG CAP ADMINISTERED AT THIS TIME, WILL CONTINUE TO MONITOR AND REASSESS
[2018-11-27] MEDS: LORAZEPAM 0.5 MG TABLET PO PRN ×3 (02:34→17:55)
--- NOTE | 2018-11-27 02:35 | NUR ---
PRN ATIVAN: APPROACHED BY PT CLAIMED HE'S ANXIOUS, REQUESTING FOR HIS ATIVAN, PRN ATIVAN ADMINISTERED AT THIS TIME, WILL CONTINUE TO MONITOR AND REASSESS
[2018-11-27 08:00] VITALS: BP 129/72
[2018-11-27] MEDS: AMLODIPINE BESYLATE 10 MG TABLET PO SCH (08:58)
[2018-11-27] MEDS: TAMSULOSIN 0.4 MG CAP.SR.24H PO SCH (08:59)
[2018-11-27] MEDS: DULOXETINE HCL 30 MG CAPSULE.DR PO SCH (08:59)
[2018-11-27] MEDS: FUROSEMIDE 40 MG TABLET PO SCH (08:59)
[2018-11-27] MEDS: MAGNESIUM HYDROXIDE 30 ML UDC PO PRN (09:22)
[2018-11-27 16:00] VITALS: BP_SYST 113; BP_SYST 127; BP_DIAS 67
[2018-11-27 20:00] VITALS: BP 122/72
[2018-11-27 20:03] VITALS: BP 122/72
[2018-11-27] MEDS: ARIPIPRAZOLE 2 MG TABLET PO SCH (21:29)
[2018-11-27] MEDS: MIRTAZAPINE 15 MG TABLET PO SCH (21:29)
[2018-11-27] MEDS: TEMAZEPAM 7.5 MG CAPSULE PO PRN (21:34)
[2018-11-28] MEDS: LORAZEPAM 0.5 MG TABLET PO PRN ×3 (02:01→20:36)
--- NOTE | 2018-11-28 02:03 | NUR ---
RN NOTES PT. ASKED FOR ATIVAN- ATIVAN 0.5MG PO GIVEN ORDERED, V/S STABLE
[2018-11-28 08:00] VITALS: BP 147/83
[2018-11-28] MEDS: AMLODIPINE BESYLATE 10 MG TABLET PO SCH (08:28)
[2018-11-28] MEDS: DULOXETINE HCL 30 MG CAPSULE.DR PO SCH (08:28)
[2018-11-28] MEDS: FUROSEMIDE 40 MG TABLET PO SCH (08:28)
[2018-11-28] MEDS: TAMSULOSIN 0.4 MG CAP.SR.24H PO SCH (08:28)
[2018-11-28] MEDS: busPIRone 5 MG TABLET PO SCH ×2 (12:55→17:46)
[2018-11-28 16:00] VITALS: BP 136/72
[2018-11-28 19:51] VITALS: BP 118/85
[2018-11-28] MEDS: MAGNESIUM HYDROXIDE 30 ML UDC PO PRN (20:19)
[2018-11-28] MEDS: MIRTAZAPINE 15 MG TABLET PO SCH (21:00)
[2018-11-28] MEDS: ARIPIPRAZOLE 2 MG TABLET PO SCH (21:01)
[2018-11-28] MEDS: TEMAZEPAM 7.5 MG CAPSULE PO PRN (21:02)
--- NOTE | 2018-11-29 04:15 | NUR ---
DEA received a call from IVAN, clinical education academic coordinator at [facility] Address: [address] [place] [address] stating pt has not been accepted due to his current cancer Dx. Addendum: 11/30/18 at 0954 by SUN MALIN ERROR NOTE
[2018-11-29] MEDS: LORAZEPAM 0.5 MG TABLET PO PRN ×3 (04:21→21:34)
[2018-11-29 08:00] VITALS: BP 130/78
[2018-11-29] MEDS: FUROSEMIDE 40 MG TABLET PO SCH (08:06)
[2018-11-29] MEDS: AMLODIPINE BESYLATE 10 MG TABLET PO SCH (08:06)
[2018-11-29] MEDS: DULOXETINE HCL 30 MG CAPSULE.DR PO SCH (08:06)
[2018-11-29] MEDS: busPIRone 5 MG TABLET PO SCH ×3 (08:06→17:57)
[2018-11-29] MEDS: TAMSULOSIN 0.4 MG CAP.SR.24H PO SCH (08:06)
--- NOTE | 2018-11-29 10:36 | NUR ---
SW received a call from Barbra digital marketing apprentice at [facility] Address: [address] [place] [address] stating pt was denied due to SI.
--- NOTE | 2018-11-29 11:29 | NUR ---
SNF REFERRAL: SW faxed SNF referral to IVAN, corporate coordinator at [facility] Address: [address] [place] [address] for review.
--- NOTE | 2018-11-29 13:03 | NUR ---
RN NOTE:PATIENT C/O ANXIETY ,MEDICATED WITH ATIVAN 0.5MG PO WILL CONTINUE TO MONITOR .
[2018-11-29 16:00] VITALS: BP 141/80
--- NOTE | 2018-11-29 16:15 | NUR ---
SW received a call from IVAN, activities coordinator at [facility] Address: [address] [place] [address] stating pt has not been accepted due to his current cancer Dx.
[2018-11-29 20:24] VITALS: BP 113/69
[2018-11-29] MEDS: MIRTAZAPINE 15 MG TABLET PO SCH (21:14)
[2018-11-29] MEDS: ARIPIPRAZOLE 2 MG TABLET PO SCH (21:14)
[2018-11-29] MEDS: TEMAZEPAM 7.5 MG CAPSULE PO PRN (22:14)
[2018-11-30] MEDS: LORAZEPAM 0.5 MG TABLET PO PRN ×3 (04:34→18:09)
[2018-11-30 08:00] VITALS: BP 128/70
[2018-11-30] MEDS: busPIRone 5 MG TABLET PO SCH ×3 (09:19→16:51)
[2018-11-30] MEDS: TAMSULOSIN 0.4 MG CAP.SR.24H PO SCH (09:19)
[2018-11-30] MEDS: DULOXETINE HCL 30 MG CAPSULE.DR PO SCH (09:20)
[2018-11-30] MEDS: FUROSEMIDE 40 MG TABLET PO SCH (09:20)
[2018-11-30] MEDS: AMLODIPINE BESYLATE 10 MG TABLET PO SCH (09:21)
--- NOTE | 2018-11-30 09:52 | NUR ---
SNF REFERRAL: DEA faxed SNF referral to marketing Nidiamarketing and outreach coordinator at [facility] Address: [address], [place], [place] [address] for review.
--- NOTE | 2018-11-30 12:00 | NUR ---
SW received a call from Barbra, affiliate marketing coordinator at [facility] Address: [address] [place] [address] stating pts referral was reconsidered after her evaluation and stated pt has been accepted to the facility.
--- NOTE | 2018-11-30 15:28 | NUR ---
SUPPORTIVE COUNSELING: SW spoke with pt regarding his discharge to [facility]. pt agreed and and also stated he was no longer having feelings of depression or thoughts of suicide. SW also provided a substance abuse intervention and provided pt with referrals to outpatient treatment centers.
[2018-11-30 16:00] VITALS: BP 111/65
[2018-11-30] MEDS: MAGNESIUM HYDROXIDE 30 ML UDC PO PRN (18:09)
[2018-11-30 20:04] VITALS: BP 113/70
[2018-11-30] MEDS: ARIPIPRAZOLE 2 MG TABLET PO SCH (21:01)
[2018-11-30] MEDS: MIRTAZAPINE 15 MG TABLET PO SCH (21:01)
[2018-11-30] MEDS: TEMAZEPAM 7.5 MG CAPSULE PO PRN (21:55)
[2018-12-01] MEDS: LORAZEPAM 0.5 MG TABLET PO PRN ×2 (02:10→10:45)
[2018-12-01 07:43] LABS: BASOPHILS # (AUTO) 0.1 /CMM (0.0-0.2); EOSINOPHILS % (AUTO) 2.6 % (0.0-6.0); HEMATOCRIT 38 % (39-51); HEMOGLOBIN 13.1 g/dL (13.5-17.5); LYMPHOCYTES # (AUTO) 1.5 /CMM (0.8-4.8); LYMPHOCYTES % (AUTO) 27.8 % (20.0-44.0); MEAN CORPUSCULAR HGB CONC 34 g/dl (31.0-36.0); MEAN CORPUSCULAR VOLUME 91 fL (80-96); MONOCYTES # (AUTO) 0.5 /CMM (0.1-1.30); MONOCYTES % (AUTO) 8.7 % (2.0-12.0); NEUTROPHILS # (AUTO) 3.2 /CMM (1.8-8.9); NEUTROPHILS % (AUTO) 59.9 % (43.0-81.0); PLATELET COUNT (AUTO) 213 /CMM (150-450); WHITE BLOOD COUNT (AUTO) 5.4 K/uL (4.3-11.0)
[2018-12-01 07:45] LABS: ALBUMIN 3.3 g/dL (3.4-5.0); BILIRUBIN,TOTAL 0.4 mg/dL (0.2-1.0); CALCIUM, SERUM 8.8 mg/dL (8.5-10.1); MAGNESIUM 2.1 mg/dL (1.8-2.4); PHOSPHORUS 3.4 mg/dL (2.5-4.9); POTASSIUM 4.2 mmol/L (3.5-5.1)
[2018-12-01 08:00] VITALS: BP 119/73
[2018-12-01] MEDS: FUROSEMIDE 40 MG TABLET PO SCH (08:25)
[2018-12-01] MEDS: busPIRone 5 MG TABLET PO SCH (08:25)
[2018-12-01 08:26] VITALS: BP 119/73
[2018-12-01] MEDS: AMLODIPINE BESYLATE 10 MG TABLET PO SCH (08:26)
[2018-12-01] MEDS: TAMSULOSIN 0.4 MG CAP.SR.24H PO SCH (08:26)
[2018-12-01] MEDS: DULOXETINE HCL 30 MG CAPSULE.DR PO SCH (08:26)
--- NOTE | 2018-12-01 10:46 | NUR ---
RN GPS NOTES PT. ASKED FOR ATIVAN - ATIVAN 0.5 MG PO PRN Q6H GIVEN ORDERED, V/S STABLE
--- NOTE | 2018-12-01 12:03 | NUR ---
DISCHARGE NOTE: Pt will be discharged at 12:30pm via [id number] trip#[id number] to [facility] Address: [address] [place] [address] . Pt has no family to notify. Pts mood is euthymic with congruent affect. Pt denied visual/auditory hallucinations and denied suicidal/homicidal ideation. Pt will address his substance use and continue psychiatric treatment with Psychiatrist: Dr. Emily Lam [address], [place] [address] [phone] and High School Assistant Principal: Dr. Gordon Condon Address: [address], [place] [address] . The multidisciplinary exitcare form was done, printed, signed, and given to the patient.
--- NOTE | 2018-12-01 12:30 | NUR ---
SHIPPING RECEIVING MANAGER NOTE PATIENT PICKED UP BY AMBULANCE AT 1230. NO COMPLAINS OF ANY PAIN/SOB, NO SI/HI. REPORT GIVEN TO [facility], TALKED TO COLBY. ALL EXIT CARE GIVEN, BELONGINGS LIST SIGNED. WOUND/SKIN PHOTO DOCUMETED.
--- NOTE | 2018-12-20 14:28 | NUR ---
SUBSTANCE ABUSE FOLLOW UP: Pt excluded due to D/C to SNF.
== END 2018-12-01 12:25 | DRG 885 ==
LOC: ER 11:20 → GPS 15:40
PROVIDERS: ADMIT Psychiatry & Neurology Psychosomatic Medicine; ATTEND Hospitalist
DX: F33.2 Major depressive disorder, recurrent severe without psychotic features (principal); E44.1 Mild protein-calorie malnutrition; R45.851 Suicidal ideations; I10 Essential (primary) hypertension; E78.5 Hyperlipidemia, unspecified; N40.0 Benign prostatic hyperplasia without lower urinary tract symptoms; F41.9 Anxiety disorder, unspecified; K21.9 Gastro-esophageal reflux disease without esophagitis; E88.09 Other disorders of plasma-protein metabolism, not elsewhere classified; Z68.31 Body mass index [BMI] 31.0-31.9, adult; G89.29 Other chronic pain; J45.909 Unspecified asthma, uncomplicated; Z85.46 Personal history of malignant neoplasm of prostate; Z96.653 Presence of artificial knee joint, bilateral; Z72.89 Other problems related to lifestyle; F19.90 Other psychoactive substance use, unspecified, uncomplicated; C85.90 Non-Hodgkin lymphoma, unspecified, unspecified site
CPT/HCPCS: 36415; 80048-TC; 80053-TC; 80061-TC; 80076-TC; 80305; 81000-TC; 83735-TC; 84100-TC; 85025-TC; 87081-TC; G0480

== ENCOUNTER 2019-01-10 20:05 | Inpatient (IN) | payer MEDICARE, OTHER ==
[~2019-01-10] VITALS: Ht 165.1 cm; Wt 90.7 kg
[~2019-01-10 20:05] MED LIST changes: -ACAM333T8 PO; -ACYC400T PO; -AZEL6DRO5 EACHEYE; +CLON1TAB12 PO; -CYCL5TAB PO; +DIPH25CA6 PO; +DULO60CA45 PO; -HYDR-3026 PO; -OMEP20CA10 PO; +PRAZ2CAP2 PO; -TADA5TAB2 PO; -VALS80TA31 PO
--- NOTE | 2019-01-10 20:30 | NUR ---
POPEYE FROM [facility] BY PMD FOR SI, -PLAN, -HALLUCINATIONS ALSO C/O LOWER BACK PAIN. -TRAUMA. HAS ATTEMPTED TO OVERDOSE ON PILLS IN THE PAST. NO OTHER COMPLAINTS AT THIS TIME. READY FOR EVAL.
[2019-01-10 21:45] LABS: BASOPHILS # (AUTO) 0.1 /CMM (0.0-0.2); BASOPHILS % (AUTO) 1.1 % (0.0-2.0); HEMATOCRIT 40 % (39-51); HEMOGLOBIN 13.7 g/dL (13.5-17.5); LYMPHOCYTES # (AUTO) 2.5 /CMM (0.8-4.8); LYMPHOCYTES % (AUTO) 32.3 % (20.0-44.0); MEAN CORPUSCULAR HGB CONC 34 g/dl (31.0-36.0); MEAN CORPUSCULAR VOLUME 93 fL (80-96); MONOCYTES # (AUTO) 0.6 /CMM (0.1-1.30); MONOCYTES % (AUTO) 7.3 % (2.0-12.0); NEUTROPHILS # (AUTO) 4.4 /CMM (1.8-8.9); NEUTROPHILS % (AUTO) 56.3 % (43.0-81.0); PLATELET COUNT (AUTO) 269 /CMM (150-450); RED BLOOD CELL COUNT(AUTO) 4.32 MIL/uL (4.5-6.0); WHITE BLOOD COUNT (AUTO) 7.7 K/uL (4.3-11.0)
[2019-01-10 21:48] LABS: APPEARANCE,URINE Clear (CLEAR); BILIRUBIN,URINE Negative (NEGATIVE); BLOOD, URINE Negative Ery/uL (NEGATIVE); COLOR,URINE Yellow (YELLOW); KETONES,URINE Negative (NEGATIVE); LEUKOCYTE ESTERASE ,URINE Negative (NEGATIVE); NITRITE, URINE Negative (NEGATIVE); PROTEIN,URINE Negative (NEGATIVE); UGLUCOSE Negative (NEGATIVE); UROBILINOGEN,URINE 0.2 EU/dL (0.2)
[2019-01-10 22:00] LABS: CALCIUM, SERUM 8.9 mg/dL (8.5-10.1); CARBON DIOXIDE 27 mmol/L (21-32); CHLORIDE 101 mmol/L (98-107); CREATININE 1.2 mg/dL (0.6-1.3); GLUCOSE 118 mg/dL (74-106); POTASSIUM 3.7 mmol/L (3.5-5.1); SODIUM SERUM 138 mmol/L (136-145); UREA NITROGEN, BLOOD 24 mg/dL (7-18)
[2019-01-10 22:06] LABS: ALANINE AMINOTRANSFERASE 28 U/L (12-78); ALBUMIN 3.7 g/dL (3.4-5.0); ALCOHOL, BLOOD < 3 mg/dL (0-0); ALKALINE PHOSPHATASE 77 U/L (46-116); ASPARTATE AMINOTRANSFERASE 17 U/L (15-37); BILIRUBIN,DIRECT 0.1 mg/dL (0.0-0.2); BILIRUBIN,TOTAL 0.4 mg/dL (0.2-1.0); TOTAL PROTEIN, SERUM 7.4 g/dL (6.4-8.2)
[2019-01-10 22:07] LABS: ACETAMINOPHEN 0 ug/ml (10-30); SALICYLATE 1.2 mg/dL (2.8-20.0)
--- NOTE | 2019-01-10 22:49 | NUR ---
PER SERVICE DESK SPECIALIST AUGUSTIN, PT PLACED ON 5150 FOR DTS OF 2241, UNDER CARE OF DR JEFFERSON
[2019-01-10] MEDS ORDERED: HYDROCODONE/APAP 5/325MG 1 EACH TABLET PO ONE (23:00)
[2019-01-10] MEDS ORDERED: LORAZEPAM 1 MG TABLET PO ONE (23:00)
[2019-01-10] MEDS ORDERED: HYDROCODONE/APAP 5/325MG 1 EACH TABLET ONE (23:03)
[2019-01-10] MEDS ORDERED: LORAZEPAM 1 MG TABLET ONE (23:03)
--- NOTE | 2019-01-10 23:14 | NUR ---
REPORT GIVEN TO [facility] FOR 943N
--- NOTE | 2019-01-10 23:20 | NUR ---
PT TRANSFERRED TO UNIT VIA WC
--- NOTE | 2019-01-10 23:30 | NUR ---
GPS ASSET MANAGEMENT ANALYST NOTES: ADMITTED THIS 68YO MALE FROM [facility], PATIENT WAS PLACED ON 5150 HOLD AT THE [facility],DUE TO SUICIDAL IDEATIONS. UPON FACE TO FACE ASSESSMENT, PATIENT PRESENTS ALERT AND ORIENTED X4, UNKEMPT, QUIET, WITHDRAWN, DEPRESSED HOWEVER PATIENT DENIES ANY SI/HI AT THIS TIME. PATIENT STATED "I AM DEPRESSED DUE TO THE FACT THAT THE GOVERNMENT CUT MY DISABILITY BENEFITS AND MY BROTHER IS NOT HELPING, AND ALSO MY PROSTATE CANCER IS BOTHERING ME." PATIENT IS UNDER THE PSYCHIATRIC CARE OF DR. JEFFERSON- ORDERS OBTAINED, NOTED AND CARRIED OUT. MEDICAL UNDER DR. REEDER- SHE CAME INTO THE UNIT TO SEE THE PATIENT AND MEDICATION WERE RECONCILED. SKIN AND BODY ASSESSMENT DONE WITH 2 RNS SKIN IS INTACT, PATENT, NO BRUISES AND OPEN SKIN NOTED, NO PRESSURE ULCER NOTED. PATIENT IS AMBULATORY. BELONGINGS AND CONTRABAND CHECKED AND RECORDED. PATIENT RIGHTS DISCUSSED , PATIENT SIGNED ADMISSION PAPERS. ADVISEMENT SERVED TO THE PATIENT. GUIDE TO PRESCRIPTION MEDS BOOK PROVIDED, HOSPITAL POLICY AND PATIENTS RIGHT DISCUSSED. INFORMED THE BROTHER REGARDING PATIENT'S ADMISSION HERE IN [facility]. Q15 MIN CHECKS INITIATED. WILL MONITOR PATIENT FOR MOOD, SAFETY AND BEHAVIOR. WILL ENDORSE PATIENT TO DAY SHIFT NURSE FOR CONTINUITY OF CARE.
[2019-01-11] MEDS ORDERED: TAMS-12 PO (00:51)
[2019-01-11] MEDS ORDERED: ARIP2TAB3 PO (00:51)
[2019-01-11] MEDS ORDERED: MAGN400O21 PO (00:51)
[2019-01-11] MEDS ORDERED: DULO30CA2 PO (00:51)
[2019-01-11] MEDS ORDERED: BUDE10.2 INH (00:51)
[2019-01-11] MEDS ORDERED: MELA5TAB PO (00:51)
[2019-01-11] MEDS ORDERED: SENN-18 PO (00:51)
[2019-01-11] MEDS ORDERED: BUSP10TA3 PO (00:51)
[2019-01-11] MEDS ORDERED: AMLO1CAP8 PO (00:51)
[2019-01-11] MEDS ORDERED: FURO40TA5 PO (00:51)
[2019-01-11] MEDS ORDERED: ALBUTEROL SULFATE 8 GM HFA.AER.AD IH PRN (01:00)
[2019-01-11] MEDS ORDERED: MAG HYDROX/AL HYDROX/SIMETH 30 ML UDC PO PRN (02:00)
[2019-01-11] MEDS ORDERED: ACETAMINOPHEN 325 MG TABLET PO PRN (02:00)
[2019-01-11] MEDS ORDERED: ALBUTEROL FS 2.5 MG/3 ML VIAL.NEB NEB PRN (02:00)
[2019-01-11 02:11] VITALS: BP 113/70
[2019-01-11] MEDS ORDERED: DOXE10CA2 PO (04:28)
[2019-01-11] MEDS ORDERED: ACYC400T PO (04:28)
[2019-01-11 07:49] LABS: BASOPHILS % (AUTO) 0.7 % (0.0-2.0); EOSINOPHILS % (AUTO) 3.8 % (0.0-6.0); HEMATOCRIT 42 % (39-51); LYMPHOCYTES # (AUTO) 2.1 /CMM (0.8-4.8); LYMPHOCYTES % (AUTO) 32.6 % (20.0-44.0); MEAN CORPUSCULAR HGB CONC 34 g/dl (31.0-36.0); MEAN CORPUSCULAR VOLUME 93 fL (80-96); MONOCYTES # (AUTO) 0.6 /CMM (0.1-1.30); MONOCYTES % (AUTO) 8.6 % (2.0-12.0); NEUTROPHILS # (AUTO) 3.6 /CMM (1.8-8.9); NEUTROPHILS % (AUTO) 54.3 % (43.0-81.0); PLATELET COUNT (AUTO) 263 /CMM (150-450); RED BLOOD CELL COUNT(AUTO) 4.46 MIL/uL (4.5-6.0); WHITE BLOOD COUNT (AUTO) 6.6 K/uL (4.3-11.0)
[2019-01-11 08:00] VITALS: BP 155/92
[2019-01-11 08:14] LABS: CALCIUM, SERUM 8.9 mg/dL (8.5-10.1); PHOSPHORUS 4.5 mg/dL (2.5-4.9); POTASSIUM 4.2 mmol/L (3.5-5.1)
[2019-01-11 08:28] LABS: THYROID STIMULATING HORMONE 2.778 uIU/mL (0.358-3.74)
--- NOTE | 2019-01-11 08:48 | NUR ---
SW contacted sharif Belle at [facility] Address: [address] [place] [address] who stated facility is taking pt back once stable.
[2019-01-11] MEDS ORDERED: Medication Not On Formulary EA (Budesonide (Pulmicort Flexhaler) 2 PUFF) INH SCH (09:00)
[2019-01-11] MEDS ORDERED: DULOXETINE HCL 30 MG CAPSULE.DR PO SCH ×3 (09:00→14:30)
[2019-01-11] MEDS ORDERED: Medication Not On Formulary EA (Budesonide/Formoterol Fumarate (Symbicort 160-4.5 Mcg In INH SCH (09:00)
[2019-01-11] MEDS ORDERED: FUROSEMIDE 40 MG TABLET PO SCH (09:00)
[2019-01-11] MEDS: FUROSEMIDE 40 MG TABLET PO SCH (09:29)
[2019-01-11] MEDS: FLUTICASONE/VILANTEROL 1 EACH BLST.W.DEV IH SCH (09:29)
[2019-01-11] MEDS: TAMSULOSIN 0.4 MG CAP.SR.24H PO SCH ×2 (09:29→21:37)
[2019-01-11] MEDS: SENNOSIDES 8.6 MG TABLET PO SCH ×2 (09:29→17:49)
[2019-01-11] MEDS: AMLODIPINE BESYLATE 10 MG TABLET PO SCH (09:30)
[2019-01-11] MEDS: LORAZEPAM 0.5 MG TABLET PO PRN (12:50)
--- NOTE | 2019-01-11 12:50 | NUR ---
given ativan for nervousness.
--- NOTE | 2019-01-11 13:26 | NUR ---
DEA received a call from sharif Belle at [facility] Address: [address] [place] [address] stating the DON was not accepting pt back, she stated that DON had spoken with Dr. Lam and Dr. Leyva regarding pt not being readmitted.
[2019-01-11] MEDS: busPIRone 5 MG TABLET PO SCH ×2 (14:39→17:48)
[2019-01-11 16:00] VITALS: BP 142/75
--- NOTE | 2019-01-11 16:11 | NUR ---
ALAN STARTED TODAY.
--- NOTE | 2019-01-11 16:54 | NUR ---
Group Note: Pt attended group therapy on 01/11/19 at 3pm about support systems and the importance and impact it has on their lives. S: "I do not have anyone in my life at the moment. Everyone has left me and the only people I have around now are not even close to me. I also do not care about making an effort with them because that takes a lot of energy that I do not have due to my depression." O: Pt was present during the group session and was cooperative. Pt appeared to be in a dysphoric and depressed mood with a distressed affect. Pt appeared to be anxious and was observed to be moving around in his seat quite a bit. He was also observed to make loud, audible sighs and lacked eye contact when speaking. A: Pt understood that the lack of a support system in his life has contributed to his depression and realized that because he no longer has the energy to engage that he has set himself up to not help himself. Pt stated that he hopes the medication will help him feel better and after that he will have the ability to make an effort with the people in his life and the hobbies that he used to have. P: Pt will continue milieu treatment and medication stabilization.
[2019-01-11] MEDS: PRAZOSIN HCL 1 MG CAPSULE PO SCH (17:50)
[2019-01-11] MEDS ORDERED: Medication Not On Formulary EA (Melatonin 1 TAB) PO SCH (18:00)
[2019-01-11] MEDS ORDERED: BUDESONIDE RESPULE INH 0.25 MG/2 ML AMPUL.NEB NEB SCH (19:30)
[2019-01-11 20:25] VITALS: BP 142/68
[2019-01-11] MEDS: TEMAZEPAM 7.5 MG CAPSULE PO PRN (21:37)
[2019-01-11] MEDS: ARIPIPRAZOLE 5 MG TABLET PO SCH (21:37)
--- NOTE | 2019-01-12 07:54 | NUR ---
medicated for rt. lower back pain with tylenol 650 mg po.
--- NOTE | 2019-01-12 07:55 | NUR ---
at the time tylenol given with questioning about pt's back pain states he has tightness in his chest-feels like a fist.states it started last night then went away and came back, a little ,says he has been crying a lot.states no heart hx,never had a stress test,due to his asthma.vs taken see graphic. moses navarro np contacted.orders given.
[2019-01-12 08:00] VITALS: BP_SYST 104; BP_SYST 125; BP_DIAS 70; BP_DIAS 83
--- NOTE | 2019-01-12 08:45 | NUR ---
ekg and labs done-rn requested from resp. tx to do breathing tx.
[2019-01-12] MEDS: AMLODIPINE BESYLATE 10 MG TABLET PO SCH (09:00)
[2019-01-12] MEDS: SENNOSIDES 8.6 MG TABLET PO SCH ×2 (09:16→17:37)
[2019-01-12] MEDS: busPIRone 5 MG TABLET PO SCH ×3 (09:16→17:37)
[2019-01-12] MEDS: TAMSULOSIN 0.4 MG CAP.SR.24H PO SCH ×2 (09:16→21:16)
[2019-01-12] MEDS: FUROSEMIDE 40 MG TABLET PO SCH (09:17)
[2019-01-12] MEDS: FLUTICASONE/VILANTEROL 1 EACH BLST.W.DEV IH SCH (09:19)
--- NOTE | 2019-01-12 09:30 | NUR ---
SUPPORTIVE COUNSELING: SW and Psychiatrist Dr. Lam spoke with pt regarding his discharge plan and also provided pt with reality based content and discussed pts depression and suicidal ideation. Psychiatrist provided pt with insight into his mental illness and educated pt on symptoms of depression combined with suicidal ideation, Dr. Lam explained that pts current SI is situational that is triggered by crisis. SW also discussed that due to pts current living situation and lack of income SW will be referring pt to a SNF in [place] and that from there he would be able to think of a better plan to assist with his current living situation. Pt agreed and also agreed to a higher dose of Cymbalta and Buspar.
--- NOTE | 2019-01-12 10:00 | NUR ---
SW attempted to contact pts brother Timi [phone] to discuss pts treatment and discharge plan. SW left voicemail for callback.
[2019-01-12] MEDS ORDERED: IPRATROPIUM NEB FS 0.5 MG/2.5 ML AMPUL.NEB NEB PRN (11:00)
--- NOTE | 2019-01-12 12:37 | NUR ---
INITIAL DISCHARGE PLAN: Patient needs SNF placement, pt will be discharged to [facility]. SW will help form a safe and proper discharge in collaboration with .
[2019-01-12] MEDS: DULOXETINE HCL 30 MG CAPSULE.DR PO SCH (13:43)
--- NOTE | 2019-01-12 14:48 | NUR ---
GROUP NOTE: Pt attended group on this present day, group topic was; "stress management and how stress has impacted your life and your current hospitalization." S: "I don't handle stress very well, I can't deal with it and I become hopeless and suicidal." O: Pt appeared with sad affect and was looking down at his hands. Pt had minimal eye contact but was engaged in group conversation. A: Pt gained awareness of how stress has affected his life and how he needs to work on positive coping skills to assist him with his stressors. SW suggested pt write down all his stressors and think of ways to improve or work towards improving those stressors. P: Pt will continue milieu treatment and medication stabilization.
[2019-01-12 16:00] VITALS: BP 146/73
[2019-01-12] MEDS: PRAZOSIN HCL 1 MG CAPSULE PO SCH (17:36)
--- NOTE | 2019-01-12 18:00 | NUR ---
comfortable without complaints.
[2019-01-12 20:00] VITALS: BP 122/72
[2019-01-12] MEDS: ARIPIPRAZOLE 5 MG TABLET PO SCH (21:16)
[2019-01-12] MEDS: TEMAZEPAM 7.5 MG CAPSULE PO PRN (21:17)
[2019-01-13 08:00] VITALS: BP 122/70
[2019-01-13] MEDS: FLUTICASONE/VILANTEROL 1 EACH BLST.W.DEV IH SCH (08:05)
[2019-01-13] MEDS: busPIRone 5 MG TABLET PO SCH ×3 (08:06→16:49)
[2019-01-13] MEDS: FUROSEMIDE 40 MG TABLET PO SCH (08:06)
[2019-01-13] MEDS: SENNOSIDES 8.6 MG TABLET PO SCH ×2 (08:06→16:49)
[2019-01-13] MEDS: TAMSULOSIN 0.4 MG CAP.SR.24H PO SCH ×2 (08:07→21:06)
[2019-01-13] MEDS: AMLODIPINE BESYLATE 10 MG TABLET PO SCH (08:07)
--- NOTE | 2019-01-13 09:35 | NUR ---
DEA faxed SNF referral to Marie, community education coordinator at [facility] Address: [place] [address] for review.
--- NOTE | 2019-01-13 10:00 | NUR ---
SW received a call from Marie, community recreation coordinator at [facility] Address: [place] [address] stating that pt was not accepted due to his frequent suicide attempts as noted on H&P pt has had 12 attempted in the past.
--- NOTE | 2019-01-13 11:33 | NUR ---
DEA faxed SNF referral to Yesenia, store coordinator at [facility] Address: [address] [place] [address] Fax: [phone] for review.
[2019-01-13] MEDS: DULOXETINE HCL 30 MG CAPSULE.DR PO SCH (12:17)
--- NOTE | 2019-01-13 13:26 | NUR ---
GPS/RN-NOTES DR. RAYGOZA SEEN THE PATIENT AND RECEIVED VERBAL ORDER OF NORCO 5/325MG 1 TAB P.O Q 4HR PRN FOR BACK PAIN. NOTED AND CARRIED OUT.
--- NOTE | 2019-01-13 15:19 | NUR ---
GPS/RN-NOTES RECEIVED T.O FROM DR. JEFFERSON FOR ONCOLOGY CONSULT FOR THE PATIENT.NOTED AND CARRIED OUT. LISSETH ( PEANUT SEPARATOR) CALLED DR. ANDREWS AND MADE AWARE OF THE CONSULT.
--- NOTE | 2019-01-13 15:26 | NUR ---
GROUP NOTE: Group was held on 01/13/19 at 2:00pm and the topic was group setting. S: "My goal is to be discharged so I can look for housing and start working so I can get my cancer treatment." O: My appeared irritable and anxious and also provided minimal feedback. Pt had his arms crossed but maintained appropriate eye contact. A: Pt gained awareness of his current living situation and also expressed intense feelings of not wanting to return to the hospital and wanting to get his life back together. P: Pt will continue milieu treatment and medication stabilization.
[2019-01-13 16:00] VITALS: BP 122/74
--- NOTE | 2019-01-13 16:01 | NUR ---
DEA contacted pts brother Timi [phone] to discuss pts treatment and discharge plan, SW informed him that pt is in need of his assistance and also informed him that pt is hopeless and feeling depressed with suicidal ideation regarding his current living situation and that pt living in a SNF has caused more depression in his life. Brother stated that he agrees to help him financially and also agreed to pay for his train ride back to [place] and also give him $200 to help pay for his rent at pts [employer]. DEA will collaborate with pts brother to assist with discharge.
--- NOTE | 2019-01-13 16:15 | NUR ---
DISCHARGE PLANNING: SW informed pt that his brother is willing to help him out financially to get back to [place], pt was excited for the news and stated he would get in contact with his friend in [place] to coordinate saying at his home.
[2019-01-13] MEDS: HYDROCODONE/APAP 5/325MG 1 EACH TABLET PO PRN (16:49)
[2019-01-13] MEDS: PRAZOSIN HCL 1 MG CAPSULE PO SCH (17:40)
[2019-01-13 20:00] VITALS: BP 116/60
[2019-01-13] MEDS: TEMAZEPAM 7.5 MG CAPSULE PO PRN (21:07)
[2019-01-13] MEDS: ARIPIPRAZOLE 5 MG TABLET PO SCH (21:07)
[2019-01-14 08:00] VITALS: BP 114/69
[2019-01-14] MEDS: busPIRone 5 MG TABLET PO SCH ×3 (08:46→17:17)
[2019-01-14] MEDS: SENNOSIDES 8.6 MG TABLET PO SCH ×2 (08:47→17:17)
[2019-01-14] MEDS: FUROSEMIDE 40 MG TABLET PO SCH (08:47)
[2019-01-14] MEDS: AMLODIPINE BESYLATE 10 MG TABLET PO SCH (08:49)
[2019-01-14] MEDS: TAMSULOSIN 0.4 MG CAP.SR.24H PO SCH ×2 (08:50→22:12)
[2019-01-14] MEDS: FLUTICASONE/VILANTEROL 1 EACH BLST.W.DEV IH SCH (09:00)
[2019-01-14] MEDS: HYDROCODONE/APAP 5/325MG 1 EACH TABLET PO PRN (10:36)
[2019-01-14] MEDS: DULOXETINE HCL 30 MG CAPSULE.DR PO SCH (12:41)
--- NOTE | 2019-01-14 14:57 | NUR ---
Group Note: Pt attended a group session on 01/14/19 at 2PM discussing stress management strategies for when they are in the hospital and for once they are discharged. S: Pt stated, I like to read good books when I am stressed. I get really into the stories and it helps get my mind off of things. O: Pt was present during the group session and was engaged. Pt appeared to be have great interest in the topic. Pt had a depressed mood and presented with a calm affect. Pt maintained appropriate eye contact and had an appropriate tone of voice. A: Pt expressed that he understands that there are many stress relieving techniques he can utilize when he is feeling stressed, and he states that he already knows how mindfulness techniques can help him when he is feeling agitates by something he cant control. Pt states that he will give mindful eating a try during dinner tonight. P: Pt will continue milieu treatment and medication stabilization.
[2019-01-14 16:00] VITALS: BP 107/65
[2019-01-14] MEDS: LORAZEPAM 0.5 MG TABLET PO PRN (17:16)
[2019-01-14] MEDS: PRAZOSIN HCL 1 MG CAPSULE PO SCH (17:19)
[2019-01-14 19:59] VITALS: BP 102/54
[2019-01-14 20:00] VITALS: BP 102/54
[2019-01-14] MEDS: ARIPIPRAZOLE 5 MG TABLET PO SCH (22:12)
[2019-01-14] MEDS: TEMAZEPAM 7.5 MG CAPSULE PO PRN (22:45)
--- NOTE | 2019-01-14 22:49 | NUR ---
RN NOTES: AT 2244 PATIENT REQUEST FOR SLEEPING PILL, GIVEN, NON PHARMACOLOGIC INTERVENTION RENDERED, TOLD HIM TO RELAX, DIM LIT THE ROOM AND MAKE COMFORTABLE IN BED.
--- NOTE | 2019-01-15 00:19 | NUR ---
RN NOTES: ABLE TO SLEEP AND REST, KEPT ON CLOSE WATCH, CALL MANZO WITHIN EASY REACH.
[2019-01-15] MEDS: HYDROCODONE/APAP 5/325MG 1 EACH TABLET PO PRN (06:56)
--- NOTE | 2019-01-15 06:56 | NUR ---
RN NOTES: SLEEP WELL IN THE NIGHT, AWAKE, AMBULATE WITH STEADY GAIT, HE ASK FOR HIS PAIN MEDICATION, PAIN 02/16 ON THE BACK, NON PHARMACOLOGIC INTERVENTION RENDERED, KEPT COMFORTABLE IN BED. Addendum: 01/15/19 at 0658 by WOODROW TUTTLE RN CONTINUATION: PAIN MEDS GIVEN, ENDORSED FOR CONTINUITY OF CARE.
[2019-01-15 08:00] VITALS: BP 136/73
[2019-01-15] MEDS: FLUTICASONE/VILANTEROL 1 EACH BLST.W.DEV IH SCH (08:46)
[2019-01-15] MEDS: MAGNESIUM HYDROXIDE 30 ML UDC PO PRN (08:46)
[2019-01-15] MEDS: busPIRone 5 MG TABLET PO SCH ×3 (08:47→17:06)
[2019-01-15] MEDS: TAMSULOSIN 0.4 MG CAP.SR.24H PO SCH ×2 (08:47→21:10)
[2019-01-15] MEDS: SENNOSIDES 8.6 MG TABLET PO SCH ×2 (08:48→17:06)
[2019-01-15] MEDS: AMLODIPINE BESYLATE 10 MG TABLET PO SCH (08:49)
[2019-01-15] MEDS: FUROSEMIDE 40 MG TABLET PO SCH (08:49)
[2019-01-15] MEDS: DULOXETINE HCL 30 MG CAPSULE.DR PO SCH (13:03)
[2019-01-15 16:00] VITALS: BP 118/75
[2019-01-15] MEDS: PRAZOSIN HCL 1 MG CAPSULE PO SCH (17:06)
[2019-01-15 19:36] VITALS: BP 112/72
[2019-01-15] MEDS: ARIPIPRAZOLE 5 MG TABLET PO SCH (21:10)
[2019-01-15] MEDS: TEMAZEPAM 7.5 MG CAPSULE PO PRN (21:37)
[2019-01-16] MEDS: MAGNESIUM HYDROXIDE 30 ML UDC PO PRN ×2 (05:05→08:38)
[2019-01-16 08:00] VITALS: BP 111/64
[2019-01-16] MEDS: SENNOSIDES 8.6 MG TABLET PO SCH ×2 (08:38→17:30)
[2019-01-16] MEDS: busPIRone 5 MG TABLET PO SCH ×3 (08:38→17:30)
[2019-01-16] MEDS: TAMSULOSIN 0.4 MG CAP.SR.24H PO SCH ×2 (08:38→20:51)
[2019-01-16] MEDS: AMLODIPINE BESYLATE 10 MG TABLET PO SCH (08:39)
[2019-01-16] MEDS: FUROSEMIDE 40 MG TABLET PO SCH (08:43)
[2019-01-16] MEDS: FLUTICASONE/VILANTEROL 1 EACH BLST.W.DEV IH SCH (08:43)
[2019-01-16] MEDS: DULOXETINE HCL 30 MG CAPSULE.DR PO SCH (12:27)
[2019-01-16] MEDS: LORAZEPAM 0.5 MG TABLET PO PRN (12:31)
[2019-01-16 16:00] VITALS: BP 126/74
[2019-01-16] MEDS: PRAZOSIN HCL 1 MG CAPSULE PO SCH (17:30)
--- NOTE | 2019-01-16 18:19 | NUR ---
pt requested ativan once this shift; ate all meals in dinning room. socializing well with other residents and staff.
[2019-01-16] MEDS: TEMAZEPAM 7.5 MG CAPSULE PO PRN (20:51)
[2019-01-16] MEDS: ARIPIPRAZOLE 5 MG TABLET PO SCH (20:51)
[2019-01-16 21:03] VITALS: BP 127/66
[2019-01-17] MEDS: LORAZEPAM 0.5 MG TABLET PO PRN (03:11)
[2019-01-17 08:00] VITALS: BP 136/74
[2019-01-17] MEDS: FUROSEMIDE 40 MG TABLET PO SCH (08:38)
[2019-01-17] MEDS: AMLODIPINE BESYLATE 10 MG TABLET PO SCH (08:38)
[2019-01-17] MEDS: busPIRone 5 MG TABLET PO SCH ×3 (08:38→17:05)
[2019-01-17] MEDS: FLUTICASONE/VILANTEROL 1 EACH BLST.W.DEV IH SCH (08:38)
[2019-01-17] MEDS: TAMSULOSIN 0.4 MG CAP.SR.24H PO SCH ×2 (08:38→20:56)
[2019-01-17] MEDS: SENNOSIDES 8.6 MG TABLET PO SCH ×2 (08:47→17:05)
--- NOTE | 2019-01-17 09:38 | NUR ---
SW contacted pts brother Timi [phone] to discuss pts discharge tomorrow. 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
--- NOTE | 2019-01-17 11:28 | NUR ---
GPS RN NOTE FAXED REQUEST FOR RECORDS FROM DR. REECE REQUESTED BY . FAX CONFIRMATION PLACED IN CHART, AWAITING RECORDS RECEIPT.
[2019-01-17] MEDS: DULOXETINE HCL 30 MG CAPSULE.DR PO SCH (12:10)
--- NOTE | 2019-01-17 13:06 | NUR ---
SW received a call from pts brother Timi [phone] providing SW with [employer] reference number so pt is able to retrieve money once discharged. [employer] $[phone] $[phone] [id number].
--- NOTE | 2019-01-17 14:48 | NUR ---
GPS RN NOTE PER SENIOR CATEGORY MANAGER FOR OFFICE, THEY ARE STILL PROCESSING THE HEALTH RECORDS REQUEST AND DID RECEIVE IT. AWAITING RECEIPT.
[2019-01-17] MEDS: MAGNESIUM HYDROXIDE 30 ML UDC PO PRN (15:01)
--- NOTE | 2019-01-17 15:06 | NUR ---
GROUP NOTE: Pt attended group therapy on 01/17/19 at 2:00pm and discussed discharge for tomorrow 01/18/19. S: "I've decided that I'm going to go to [facility] I just need assistance with a map so I know how to get to the [address] and also to the [employer] store to get the money my brother sent me. I need to be in [facility] so I can get my life back together." O: Pt appeared hopeful and was smiling, pt identified positive goals and had a smile on his face while doing so. A: Pt gained awareness of his triggers that lead to his depression. Pt strongly expressed that he wishes to get back on his feet and work so he can begin working on getting healthy emotionally, physically, and mentality. P: Pt will continue medication compliance.
[2019-01-17 16:00] VITALS: BP 144/78
--- NOTE | 2019-01-17 16:30 | NUR ---
DEA contacted [facility] Address: [address], [place] [address] and spoke with Rahul who stated pt did not need a warm handoff and just needed to show up at 4:30pm to receive a bed.
[2019-01-17] MEDS: PRAZOSIN HCL 1 MG CAPSULE PO SCH (17:06)
--- NOTE | 2019-01-17 17:28 | NUR ---
GPS RN NOTE DISCUSSED DISCHARGE MEDICATIONS AND INFORMED THE PT THAT UPON DISCHARGE HE WILL BE PROVIDED WITH A PHYSICAL PRESCRIPTION THAT HE IS TO TAKE TO HIS PREFERRED PHARMACY. OFFERED TO CALL HIS PREFERRED PHARMACY IN [place] SO MEDICATIONS CAN BE READY FOR [facility]. PATIENT DECLINED AND STATED HE WILL [facility] MEDICATIONS HIMSELF. VERBALIZED UNDERSTANDING OF TAKING ALL MEDICATIONS PRESCRIBED AND ORDERED.
--- NOTE | 2019-01-17 20:00 | NUR ---
BP, Pulse LOW NURSE INFORMATICIST reported low BP 89/54 P44. Patient denies dizziness or headache. Will reassess, maintained safety.
[2019-01-17 20:16] VITALS: BP 89/54
[2019-01-17 20:38] VITALS: BP 116/64
[2019-01-17] MEDS: ARIPIPRAZOLE 5 MG TABLET PO SCH (20:56)
--- NOTE | 2019-01-17 20:56 | NUR ---
RECHECK BP, PULSE Patient improved with no intervention, BP 116/64 P92, patient remains stable, denies any discomfort.
[2019-01-17] MEDS: TEMAZEPAM 7.5 MG CAPSULE PO PRN (20:57)
--- NOTE | 2019-01-17 22:36 | NUR ---
SLEEPING Patient in bed, sleeping arouses easily. Compliant with medication. Safety checks continues.
[2019-01-18] MEDS: LORAZEPAM 0.5 MG TABLET PO PRN (01:31)
--- NOTE | 2019-01-18 01:33 | NUR ---
ANXIETY Patient reports anxiety, denies SOB. Given PRN Ativan. Safety checks continues.
--- NOTE | 2019-01-18 06:01 | NUR ---
END OF SHIFT Patient slept well with PRN Restoril, approximately 7 hours of sleep. Planned discharge today. Maintained safety.
[2019-01-18 08:00] VITALS: BP 160/84
[2019-01-18] MEDS: FUROSEMIDE 40 MG TABLET PO SCH (08:17)
[2019-01-18] MEDS: TAMSULOSIN 0.4 MG CAP.SR.24H PO SCH (08:17)
[2019-01-18 08:18] VITALS: BP 160/84
[2019-01-18] MEDS: AMLODIPINE BESYLATE 10 MG TABLET PO SCH (08:18)
[2019-01-18] MEDS: busPIRone 5 MG TABLET PO SCH (08:18)
[2019-01-18] MEDS: SENNOSIDES 8.6 MG TABLET PO SCH (08:19)
[2019-01-18] MEDS: FLUTICASONE/VILANTEROL 1 EACH BLST.W.DEV IH SCH (08:23)
--- NOTE | 2019-01-18 10:04 | NUR ---
DISCHARGE PLAN: Pt was discharged at 9:30am via public transportation and was provided a TAP Card to the [facility] Address: [address] [place] [address] to [facility] Address: [address], [place] [address] . Pts brother Timi [phone] has been notified and provided pt with monetary assistance to assist pt with his train ticket and stay in [place]. Pt was provided with a homeless resource packet. Pt will follow up with [facility] Address: [address], [place] [address] to address his sobriety and also continue psychiatric treatment. Pt will also follow up with Dr. Macho Díaz Address: [address] [place] [address] for Oncology and pt was also given a referral to [facility] Address: [address], [place] [address] . Pt was alert and oriented x4 and appeared in a euthymic mood with congruent affect. Pt denied suicidal/homicidal ideation and denied visual/auditory hallucinations. The multidisciplinary exitcare form was done, printed, signed, and given to the patient.
--- NOTE | 2019-01-18 11:37 | NUR ---
ADVANCE SCOUT NOTE: PATIENT IS A 68 YEAR OLD MALE DISCHARGED TO [facility] [address] [facility] [address] . PATIENT'S BEHAVIOR HAS IMPROVED SINCE HIS ADMISSION TO [facility]. HE IS COMPLIANT WITH PLAN OF CARE AND COOPERATIVE WITH MEDICATION MANAGEMENT. PATIENT DENIES SI/HI, AUDITORY OR VISUAL HALLUCINATIONS AT THE TIME OF DISCHARGE. VSS. NO ACUTE DISTRESS NOTED. NO COMPLAINTS. SKIN CHECK COMPLETE, SKIN INTACT. PSYCHIATRIC TREATMENT PLANS MET, MEDICAL TREATMENT DEFERRED FOR CONTINUAL MONITORING. EDUCATED PATIENT ABOUT AFTERCARE AND PROVIDED COPY WITH DISCHARGE PAPERWORK. DISCHARGE CONSENTS SIGNED. COPY OF RESOURCES PROVIDED TO PATIENT. DR. JEFFERSON PROVIDED ORDERS FOR DISCHARGE, DC HOLD AND A MED RECON W/ PRESCRIPTION. PATIENT STATED THAT HE HAD HIS MEDICAL MEDICATION WITH HIM AND HE DOES NOT A WRITTEN PRESCRIPTION. PLAN TO FOLLOW UP WITH PSYCHIATRIST AT [facility] [address] [facility] [address] AND LONG WINDER TENDER AT [facility] [address] [facility] [address] . RETURNED BELONGINGS TO PATIENT INCLUDING TAP CARD TO GET TO THE [employer] [facility]. FORESTRY ENGINEER ESCORTED PATIENT OUTSIDE OF HOSPITAL AT 09:50.
== END 2019-01-18 09:50 | disposition home or self-care (01) | DRG 885 ==
LOC: ER 20:06 → GPS 23:08
PROVIDERS: ADMIT Psychiatry & Neurology Psychosomatic Medicine; ATTEND Student in an Organized Health Care Education/Training Program
DX: F33.2 Major depressive disorder, recurrent severe without psychotic features (principal); E44.1 Mild protein-calorie malnutrition; R45.851 Suicidal ideations; C85.90 Non-Hodgkin lymphoma, unspecified, unspecified site; E78.5 Hyperlipidemia, unspecified; I10 Essential (primary) hypertension; K21.9 Gastro-esophageal reflux disease without esophagitis; G89.29 Other chronic pain; Z85.46 Personal history of malignant neoplasm of prostate; Z85.820 Personal history of malignant melanoma of skin; Z92.3 Personal history of irradiation; J45.909 Unspecified asthma, uncomplicated; E88.09 Other disorders of plasma-protein metabolism, not elsewhere classified; Z68.33 Body mass index [BMI] 33.0-33.9, adult; F41.9 Anxiety disorder, unspecified; F19.90 Other psychoactive substance use, unspecified, uncomplicated; Z72.89 Other problems related to lifestyle
CPT/HCPCS: 36415; 80048-TC; 80061-TC; 80076-TC; 80305; 81000-TC; 83735-TC; 84100-TC; 84443-TC; 84484-TC; 85025-TC; 87081-TC; G0480